=== PATIENT | male | born 1990 | race Caucasian/White ===

== ENCOUNTER 2017-03-23 11:50 | Emergency (ER) | payer OTHER ==
[~2017-03-23] VITALS: Ht 180.3 cm; Wt 108.0 kg
[~2017-03-23 11:50] MED LIST: ALPR0.5T2 PO; ARIP15TA1 PO; CITA40TA13 PO; DIL100L PO; KEN.1C TP; LORA10TA19 PO; PRAV40TA1 PO; TRAZ-286 PO
[2017-03-23 11:55] VITALS: BP 122/89
--- NOTE | 2017-03-23 13:04 | NUR ---
Patient ambulated to bed 07.
--- NOTE | 2017-03-23 13:11 | NUR ---
27/M c/o cough x4 days and a fever on and off the past few days. Afebrile at this time. Lungs clear bilaterally, chest rises and falls symmetrically. AOX4, clear speech. Pt has mild weakness to left side from previous strokes. Hx CVA, TIA, "heart problems" VSS at this time.
--- NOTE | 2017-03-23 13:25 | NUR ---
Patient being evaluated by Dr. Jang at bedside.
[2017-03-23 13:36] VITALS: BP 125/87
--- NOTE | 2017-03-23 13:36 | NUR ---
Patient discharged with v/s stable. Written and verbal after care instructions given and explained. Patient alert, oriented and verbalized understanding of instructions. Ambulatory with steady gait. All questions addressed prior to discharge. ID band removed. Patient advised to follow up with PMD. Rx of Motrin 800mg and Prednisone 20mg given. Patient educated on indication of medication including possible reaction and side effects. Opportunity to ask questions provided and answered.
== END 2017-03-23 13:36 | disposition home or self-care (01) ==
LOC: MED 11:50
DX: R05 Cough (principal); R50.9 Fever, unspecified; F17.200 Nicotine dependence, unspecified, uncomplicated
CPT/HCPCS: 71020; 99284

== ENCOUNTER 2017-04-04 09:21 | Emergency (ER) | payer OTHER ==
[~2017-04-04] VITALS: Ht 180.3 cm; Wt 108.9 kg
[2017-04-04 09:36] VITALS: BP 124/89
--- NOTE | 2017-04-04 09:43 | NUR ---
PATIENT PRESENTS TO ED WITH COUGH X2 WEEKS; WITH GREEN PHLEGM PRODUCTION HX SEIZURES, CVA X1, TIA X3, LOOP RECORDER-CARDIAC . DENIES N/V/D; SKIN IS PINK/WARM/DRY; AAOX4 WITH EVEN AND STEADY GAIT; LUNGS CLEAR BL; HR EVEN AND REGULAR; PT DENIES ANY FEVER, CP, SOB, OR COUGH AT THIS TIME; PATIENT STATES PAIN OF 0/10 AT THIS TIME; VSS; PATIENT POSITIONED FOR COMFORT; HOB ELEVATED; BEDRAILS UP X2; BED DOWN. ER MD MADE AWARE OF PT STATUS.
--- NOTE | 2017-04-04 10:02 | NUR ---
CALLED PHARMACY;NO D5 100 ML IN THE PYXIS;SPOKE TO YEIMY OF PHARMACY SAYS OKAY TO USE NS 100 ML.
[2017-04-04 10:19] VITALS: BP 137/87
--- NOTE | 2017-04-04 10:19 | NUR ---
Patient discharged with v/s stable. Written and verbal after care instructions given and explained. Patient alert, oriented and verbalized understanding of instructions. Ambulatory with steady gait. All questions addressed prior to discharge. ID band removed. Patient advised to follow up with PMD. Rx of PROMETHAZINE given. Patient educated on indication of medication including possible reaction and side effects. Opportunity to ask questions provided and answered.
== END 2017-04-04 10:19 | disposition home or self-care (01) ==
LOC: MED 09:21
DX: J02.8 Acute pharyngitis due to other specified organisms (principal); B96.89 Other specified bacterial agents as the cause of diseases classified elsewhere; Z79.899 Other long term (current) drug therapy; Z86.73 Personal history of transient ischemic attack (TIA), and cerebral infarction without residual deficits; Z88.0 Allergy status to penicillin
CPT/HCPCS: 99283

== ENCOUNTER 2018-02-02 12:37 | Emergency (ER) | payer OTHER ==
[~2018-02-02] VITALS: Ht 180.3 cm; Wt 108.9 kg
[~2018-02-02 12:37] MED LIST changes: -TRAZ-286 PO; +TRAZ-343 PO
[2018-02-02 12:50] VITALS: BP 137/92
--- NOTE | 2018-02-02 13:20 | NUR ---
PATIENT PRESENTS TO ED WITH C/O ABDOMINAL PAIN WITH N/V X2 TIMES TODAY . AAOX4 WITH EVEN AND STEADY GAIT; LUNGS CLEAR BL; HR EVEN AND REGULAR; PT DENIES ANY FEVER, CP, SOB, OR COUGH AT THIS TIME; PATIENT STATES PAIN OF 8/10 AT THIS TIME; VSS; PATIENT POSITIONED FOR COMFORT; HOB ELEVATED; BEDRAILS UP X2; BED DOWN. ER MD MADE AWARE OF PT STATUS.
--- NOTE | 2018-02-02 13:45 | NUR ---
Patient being evaluated by physician at bedside.
[2018-02-02] MEDS ORDERED: NACL 0.9% 1,000 ML IV ONE (13:46)
[2018-02-02] MEDS ORDERED: KETOROLAC 30 MG/ML VIAL IVP ONE (13:50)
[2018-02-02] MEDS ORDERED: ONDANSETRON 4 MG/2 ML VIAL IVP ONE (13:50)
[2018-02-02 14:10] LABS: BASOPHILS # (AUTO) 0.1 K/uL (0.00-0.22); BASOPHILS % (AUTO) 0.4 % (0.0-2.0); EOSINOPHILS % (AUTO) 0.3 % (0.0-4.0); HEMATOCRIT 46.4 % (36-52); HEMOGLOBIN 15.6 g/dL (12.0-18.0); LYMPHOCYTES # (AUTO) 2.7 K/uL (2.0-11.5); LYMPHOCYTES % (AUTO) 21.5 % (20.5-51.1); MEAN CORPUSCULAR HEMOGLOBIN 31 pg (27-31); MEAN CORPUSCULAR HGB CONC 34 g/dL (33-37); MEAN CORPUSCULAR VOLUME 92.1 fL (80-94); MONOCYTES % (AUTO) 8.1 % (1.7-9.3); NEUTROPHILS # (AUTO) 8.6 K/uL (1.8-7.7); NEUTROPHILS % (AUTO) 69.7 % (42.2-75.2); PLATELET COUNT (AUTO) 240 K/uL (140-450); RED BLOOD CELL COUNT(AUTO) 5.03 MIL/uL (4.20-6.10); WHITE BLOOD COUNT (AUTO) 12.4 K/uL (4.8-10.8)
[2018-02-02 14:30] LABS: CARBON DIOXIDE 29.6 mmol/L (21-32); CREATININE 1.2 mg/dL (0.7-1.3); POTASSIUM 3.6 mmol/L (3.5-5.1)
[2018-02-02 14:36] LABS: ALBUMIN 3.7 g/dL (3.4-5.0); TOTAL BILIRUBIN 0.2 mg/dL (0.0-1.0)
[2018-02-02 16:00] VITALS: BP 132/89
--- NOTE | 2018-02-02 16:00 | NUR ---
Patient discharged with v/s stable. Written and verbal after care instructions given and explained. Patient alert, oriented and verbalized understanding of instructions. Ambulatory with steady gait. All questions addressed prior to discharge. ID band removed. IV REMOVED. Patient advised to follow up with PMD. Rx of MOTRIN, SENOKOT given. Patient educated on indication of medication including possible reaction and side effects. Opportunity to ask questions provided and answered.
== END 2018-02-02 16:00 | disposition home or self-care (01) ==
LOC: MED 12:37
DX: R11.10 Vomiting, unspecified (principal); R10.13 Epigastric pain; I10 Essential (primary) hypertension; Z88.0 Allergy status to penicillin; Z79.899 Other long term (current) drug therapy; Z86.73 Personal history of transient ischemic attack (TIA), and cerebral infarction without residual deficits
CPT/HCPCS: 36415; 74176; 80053; 85025; 96361; 96374; 96375; 99285; J1885; J2405; J7030

== ENCOUNTER 2018-08-04 17:41 | Emergency (ER) | payer MEDICAID, OTHER ==
[~2018-08-04] VITALS: Ht 182.9 cm; Wt 108.5 kg
[2018-08-04 17:49] VITALS: BP 151/90
--- NOTE | 2018-08-04 17:49 | NUR ---
PT BIB SELF C/O ANXIETY X1 MONTH. PT REPORTS WORSENING PANIC ATTACKS X1 MONTH STATING SOB. PT RR TACHYPNEIC AT 24/MIN, SYMMETRICAL, NON-LABORED, BREATH SOUNDS CLEAR THROUGHTOUT. PT DENIES N/V/D, FEVER OR PAIN. PT REPORTS THAT HIS TOUNGUE IS TINGLING. SPEECH IS CLEAR, FACIAL SYMMETRY INTACT, GAIT IS STEADY, PERRLA, AAOX4, HAND THREAD INSPECTOR BL STRONG/EQUAL. VSS. ER MD TO SEE PT. MEDHX:ANXIETY, CVA RX:DENIES
[2018-08-04] MEDS ORDERED: LORazepam 2 MG/ML VIAL IM ONE (18:20)
[2018-08-04 19:05] VITALS: BP 132/74
== END 2018-08-04 19:05 | disposition home or self-care (01) ==
LOC: MED 17:41
DX: F41.9 Anxiety disorder, unspecified (principal); I10 Essential (primary) hypertension; F17.210 Nicotine dependence, cigarettes, uncomplicated; E07.9 Disorder of thyroid, unspecified; Z86.73 Personal history of transient ischemic attack (TIA), and cerebral infarction without residual deficits; Z88.0 Allergy status to penicillin; Z79.899 Other long term (current) drug therapy
CPT/HCPCS: 96372; 99283; J2060

== ENCOUNTER 2018-08-15 20:11 | Emergency (ER) | payer MEDICAID ==
[~2018-08-15] VITALS: Ht 182.9 cm; Wt 105.7 kg
[2018-08-15 20:24] VITALS: BP 141/86
--- NOTE | 2018-08-15 20:26 | NUR ---
TO LOBBY A/W BED, AMBULATORY
--- NOTE | 2018-08-15 20:34 | NUR ---
AMBULATED TO ER BED 2
--- NOTE | 2018-08-15 20:43 | NUR ---
BIB SELF WITH REPORTS OF WORSENING ANXIETY TODAY AFTER TAKEN NEWLY PRESCRIBED BUSPAR. STATES HE WAS SEEN HERE 2 WEEKS AGO AND AT [facility] ON SUNDAY FOR ANXIETY AND HAS BEEN TAKING 1 TAB OF ATIVAN DAILY. TODAY HE SAW HES PCP AND WAS GIVEN PRESCRIPTION OF BUSPAR AND INSTRUCTED TO STOP TAKING ATIVAN. AFTER HE TOOK THE NEW MEDICATION HE HAD A "PANIC ATTACK" STATES HIS ANXIETY IS LESSENED NOW AND IS NOT IN ANY DISTRESS. STATES HE HAS "PRESSURE" IN HIS HEAD 5/10 PAIN. NO OTHER SYMPTOMS REPORTED AT THIS TIME.
--- NOTE | 2018-08-15 22:10 | NUR ---
DR CUNNINGHAM AT BEDSIDE.
[2018-08-15 22:46] VITALS: BP 132/78
== END 2018-08-15 22:46 | disposition home or self-care (01) ==
LOC: MED 20:11
DX: F41.9 Anxiety disorder, unspecified (principal); Z86.73 Personal history of transient ischemic attack (TIA), and cerebral infarction without residual deficits; E07.9 Disorder of thyroid, unspecified; Z79.899 Other long term (current) drug therapy; Z88.0 Allergy status to penicillin
CPT/HCPCS: 99284

== ENCOUNTER 2018-08-27 07:44 | Emergency (ER) | payer MEDICAID ==
[~2018-08-27] VITALS: Ht 182.9 cm; Wt 108.9 kg
[2018-08-27 07:48] VITALS: BP 143/84
[2018-08-27] MEDS ORDERED: LORA-476 PO (07:52)
--- NOTE | 2018-08-27 07:55 | NUR ---
PATIENT AMBULATED TO BED 9 AT THIS TIME.
--- NOTE | 2018-08-27 07:56 | NUR ---
TO BED 9 WITH STEADY GAIT
--- NOTE | 2018-08-27 08:18 | NUR ---
admits take cbd oil along keanni dilantin to reduce his breakthrough seizure awoke this 5am with heart racing, took ativan 6am---flight of ideas, concerns of own health---- currently appears relaxed with hands folded over abdomen , speaking to me about how his anxiety feels.
--- NOTE | 2018-08-27 09:31 | NUR ---
Patient discharged with v/s stable. Written and verbal after care instructions given and explained. Patient alert, oriented and verbalized understanding of instructions. Ambulatory with steady gait. All questions addressed prior to discharge. ID band removed. Patient advised to follow up with PMD. Rx of prozac given. Patient educated on indication of medication including possible reaction and side effects. Opportunity to ask questions provided and answered. mental health sheet
[2018-08-27 09:32] VITALS: BP 128/74
== END 2018-08-27 09:31 | disposition home or self-care (01) ==
LOC: MED 07:44
DX: F41.9 Anxiety disorder, unspecified (principal); E07.9 Disorder of thyroid, unspecified; Z88.0 Allergy status to penicillin; Z79.899 Other long term (current) drug therapy; Z86.73 Personal history of transient ischemic attack (TIA), and cerebral infarction without residual deficits
CPT/HCPCS: 99284

== ENCOUNTER 2018-10-20 14:23 | Emergency (ER) | payer MEDICAID ==
[~2018-10-20] VITALS: Ht 182.9 cm; Wt 108.9 kg
[~2018-10-20 14:23] MED LIST changes: +LORA-476 PO
[2018-10-20 14:32] VITALS: BP 144/83
[2018-10-20] MEDS ORDERED: ACETAMINOPHEN EXTRA STRENGTH 500 MG TAB PO ONE (14:50)
--- NOTE | 2018-10-20 15:00 | NUR ---
C/O BILAT NECK PAIN 10/23 & SHARP SINCE YESTERDAY MORNING AFTER WAKING UP. PAIN RADIATES FROM NECK TO HEAD AND SHOULDER. PT DENIES INJURY, BUT STATES HE THINKS HE SLEPT WRONG. DENIES HEADACHE, BLURRY VISION, WEAKNESS. BED IN LOW POSITION, SIDE RAIL UP X1.
[2018-10-20 15:22] LABS: BASOPHILS # (AUTO) 0.1 K/uL (0.00-0.22); BASOPHILS % (AUTO) 0.7 % (0.0-2.0); EOSINOPHILS # (AUTO) 0.4 K/uL (0-0.4); EOSINOPHILS % (AUTO) 3.9 % (0.0-4.0); HEMATOCRIT 46.7 % (36-52); LYMPHOCYTES # (AUTO) 2.6 K/uL (2.0-11.5); MEAN CORPUSCULAR HEMOGLOBIN 31 pg (27-31); MEAN CORPUSCULAR HGB CONC 34 g/dL (33-37); MEAN CORPUSCULAR VOLUME 91.6 fL (80-94); MONOCYTES % (AUTO) 10.2 % (1.7-9.3); NEUTROPHILS % (AUTO) 59.2 % (42.2-75.2); PLATELET COUNT (AUTO) 208 K/uL (140-450); RED CELL DISTRIBUTION WIDTH 13.5 % (11.6-13.7); WHITE BLOOD COUNT (AUTO) 10.1 K/uL (4.8-10.8)
[2018-10-20 15:36] LABS: ANION GAP 10.9 (8-16); CARBON DIOXIDE 28.1 mmol/L (21-32); CREATININE 1.3 mg/dL (0.7-1.3)
[2018-10-20 15:40] LABS: PROTHROMBIN TIME 8.9 secs (10.8-13.4)
[2018-10-20 15:42] LABS: TOTAL BILIRUBIN 0.3 mg/dL (0.0-1.0)
--- NOTE | 2018-10-20 15:45 | NUR ---
PT REQUESTING TO SPEAK TO ERMD REGARDING THE TESTS BEING PERFORMED/ORDERED. DR. MONTIEL AWARE AND WILL SEE PT
--- NOTE | 2018-10-20 15:52 | NUR ---
WENT TO START IV ON PT FOR CT WITH CONTRAST, PT WANTS TO SPEAK WITH MD ABOUT WHY TESTS ARE BEING ORDERS , DR MONTIEL MADE AWARE, WILL GO SPEAK WITH PT.
--- NOTE | 2018-10-20 16:20 | NUR ---
DR MONTIEL SPOKE WITH PT, MADE AWARE PT WILL SIGNING OUT AMA AND GIVEN RX AND INSTRUCTIONS, PT SIGNED AMA FORM.
--- NOTE | 2018-10-20 16:25 | NUR ---
AFTER SPEAKING WITH DR. MONTIEL, PT DECLINES CT W/ CONTRAST. HE WISHES TO LEAVE AMA
[2018-10-20 16:32] VITALS: BP 144/83
--- NOTE | 2018-10-20 16:32 | NUR ---
Patient discharged with v/s stable. Written and verbal after care instructions given and explained. Patient alert, oriented and verbalized understanding of instructions. Ambulatory with steady gait. All questions addressed prior to discharge. ID band removed. Patient advised to follow up with PMD. Rx of IBUPROFEN, TYLENOL given. Patient educated on indication of medication including possible reaction and side effects. Opportunity to ask questions provided and answered.
== END 2018-10-20 16:32 | disposition home or self-care (01) ==
LOC: MED 14:23
DX: M54.2 Cervicalgia (principal); E07.9 Disorder of thyroid, unspecified; F41.9 Anxiety disorder, unspecified; Z86.73 Personal history of transient ischemic attack (TIA), and cerebral infarction without residual deficits; Z88.0 Allergy status to penicillin; Z79.899 Other long term (current) drug therapy
CPT/HCPCS: 36415; 71045; 80053; 83880; 84484; 85025; 85610; 85730; 93005; 99284; Q0092

== ENCOUNTER 2019-04-08 07:40 | Emergency (ER) | payer MEDICAID ==
[~2019-04-08] VITALS: Ht 182.9 cm; Wt 103.9 kg
--- NOTE | 2019-04-08 07:45 | NUR ---
pt taken to bed 11
[2019-04-08 07:50] VITALS: BP 135/95
[2019-04-08] MEDS ORDERED: MORPHINE SULFATE 2 MG/ML SYR IVP ONE (07:55)
[2019-04-08] MEDS ORDERED: ONDANSETRON 4 MG/2 ML VIAL IVP ONE (07:55)
[2019-04-08] MEDS ORDERED: KETOROLAC 30 MG/ML VIAL IVP ONE (07:55)
[2019-04-08] MEDS ORDERED: METOCLOPRAMIDE 10 MG/2 ML INJ VIAL IVP ONE (07:55)
[2019-04-08] MEDS ORDERED: cloNIDine 0.1 MG TAB PO ONE ×2 (08:05→15:30)
[2019-04-08] MEDS ORDERED: LORazepam 2 MG/ML VIAL IVP ONE (08:05)
--- NOTE | 2019-04-08 08:38 | NUR ---
PT AMBULATED TO BATHROOM, URINE WAS PROVIDED VIA PATIENT, SENT TO LAB
--- NOTE | 2019-04-08 08:39 | NUR ---
BLOOD JOSEPH AT BEDSIDE BY MALIHA AGUILAR, SENT TO LAB
--- NOTE | 2019-04-08 08:44 | NUR ---
PT TAKEN TO CT
[2019-04-08 08:49] LABS: APPEARANCE,URINE CLEAR (CLEAR); BILIRUBIN,URINE NEGATIVE (NEGATIVE); BLOOD, URINE NEGATIVE (NEGATIVE); COLOR,URINE YELLOW (YELLOW); LEUKOCYTE ESTERASE ,URINE NEGATIVE (NEGATIVE); NITRITE, URINE NEGATIVE (NEGATIVE); PH,URINE 8.5 (5.0-9.0); UGLUCOSE NEGATIVE (NEGATIVE)
[2019-04-08 08:49] LABS: PROTHROMBIN TIME 9.5 secs (10.8-13.4)
--- NOTE | 2019-04-08 08:49 | NUR ---
BIB SELF PATIENT WOKE UP YESTERDAY MORNING FEELING A PRESSURE IN THE BACK OF HEAD, 11/23. NO OTHER PAIN/SYMPTOMS REPORTED. 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
--- NOTE | 2019-04-08 08:51 | NUR ---
PT BACK FROM CT VIZ WHEELCHAIR, RESTING AT BEDSIDE Addendum: 04/08/19 at 0927 by SHANNAN Amendment undone in EDM - 04/08/19 at 0928 by SHANNAN PT BACK FROM CT VIA WHEELCHAIR, RESTING AT BEDSIDE
[2019-04-08 08:54] LABS: BARBITURATE, URINE NEG. ng/ml (NEG <=200); BENZODIAZEPINE, URINE POS. ng/mL (NEG <=200); CANNABINOID, URINE NEG. ng/mL (NEG <=50); COCAINE, URINE NEG. ng/mL (NEG <=300); OPIATE, URINE NEG. ng/mL (NEG <=2000); PHENCYCLIDINE SCREEN,URINE NEG. ng/mL (NEG <=25)
[2019-04-08 08:55] LABS: ALBUMIN 4.1 g/dL (3.4-5.0); ANION GAP 15.8 (8-16); CARBON DIOXIDE 23.8 mmol/L (21-32); POTASSIUM 3.6 mmol/L (3.5-5.1); TOTAL BILIRUBIN 0.7 mg/dL (0.0-1.0)
[2019-04-08 09:01] LABS: BASOPHILS % (AUTO) 0.7 % (0.0-2.0); EOSINOPHILS # (AUTO) 0.1 K/uL (0-0.4); HEMATOCRIT 48.8 % (36-52); HEMOGLOBIN 16.8 g/dL (12.0-18.0); LYMPHOCYTES # (AUTO) 1.7 K/uL (2.0-11.5); LYMPHOCYTES % (AUTO) 27.1 % (20.5-51.1); MEAN CORPUSCULAR HEMOGLOBIN 31 pg (27-31); MEAN CORPUSCULAR HGB CONC 35 g/dL (33-37); MEAN CORPUSCULAR VOLUME 90.8 fL (80-94); MONOCYTES # (AUTO) 0.7 K/uL (0.8-1.0); MONOCYTES % (AUTO) 10.9 % (1.7-9.3); NEUTROPHILS # (AUTO) 3.8 K/uL (1.8-7.7); NEUTROPHILS % (AUTO) 59.3 % (42.2-75.2); PLATELET COUNT (AUTO) 228 K/uL (140-450); RED BLOOD CELL COUNT(AUTO) 5.37 MIL/uL (4.20-6.10); RED CELL DISTRIBUTION WIDTH 13.3 % (11.6-13.7); WHITE BLOOD COUNT (AUTO) 6.4 K/uL (4.8-10.8)
[2019-04-08 10:10] VITALS: BP 135/75
--- NOTE | 2019-04-08 10:11 | NUR ---
Patient discharged with v/s stable. Written and verbal after care instructions given and explained. Patient alert, oriented and verbalized understanding of instructions. Ambulatory with steady gait. All questions addressed prior to discharge. ID band removed. Patient advised to follow up with PMD. Rx of PROMETHAZINE, PREDISONE, AZITHROMYCIN given. Patient educated on indication of medication including possible reaction and side effects. Opportunity to ask questions provided and answered.
== END 2019-04-08 10:11 | disposition home or self-care (01) ==
LOC: MED 07:40
DX: G44.209 Tension-type headache, unspecified, not intractable (principal); I10 Essential (primary) hypertension; J32.2 Chronic ethmoidal sinusitis; F32.9 Major depressive disorder, single episode, unspecified; E66.9 Obesity, unspecified; Z86.73 Personal history of transient ischemic attack (TIA), and cerebral infarction without residual deficits; Z86.69 Personal history of other diseases of the nervous system and sense organs; Z86.39 Personal history of other endocrine, nutritional and metabolic disease; Z79.899 Other long term (current) drug therapy; Z88.0 Allergy status to penicillin
CPT/HCPCS: 36415; 70450; 80053; 80305; 81003; 85025; 85610; 87804; 96374; 96375; 99284; J1885; J2405; J2765; J2060; J2270

== ENCOUNTER 2019-04-24 13:49 | Emergency (ER) | payer MEDICAID ==
[~2019-04-24] VITALS: Ht 182.9 cm; Wt 104.3 kg
[2019-04-24 14:05] VITALS: BP 143/80
--- NOTE | 2019-04-24 14:07 | NUR ---
Patient ambulated to chair C. RN evaluating patient.
--- NOTE | 2019-04-24 14:34 | NUR ---
29/M C/O NASAL CONGESTION, RHINORRHEA, PRODUCTIVE COUGH AND STOMACH PAIN WITH COUGHING X 2 DAYS. LUNGS CTAB. HX- CVA, SZ, HTN, ANXIETY
--- NOTE | 2019-04-24 14:42 | NUR ---
DR ELLSWORTH EVALUATING PT
== END 2019-04-24 15:00 | disposition home or self-care (01) ==
LOC: MED 13:49
DX: J20.9 Acute bronchitis, unspecified (principal); F41.9 Anxiety disorder, unspecified; I10 Essential (primary) hypertension; Z86.69 Personal history of other diseases of the nervous system and sense organs; Z86.73 Personal history of transient ischemic attack (TIA), and cerebral infarction without residual deficits; Z86.39 Personal history of other endocrine, nutritional and metabolic disease; Z79.899 Other long term (current) drug therapy; Z88.0 Allergy status to penicillin
CPT/HCPCS: 99283

== ENCOUNTER 2019-05-11 12:55 | Emergency (ER) | payer MEDICAID ==
[~2019-05-11] VITALS: Ht 182.9 cm; Wt 104.3 kg
[2019-05-11 13:20] VITALS: BP 147/79
--- NOTE | 2019-05-11 13:29 | NUR ---
PT BIB SELF C/O HERE FOR CAME MED REFILL : XANAX 0.5 MG PO DAILY.
--- NOTE | 2019-05-11 13:29 | NUR ---
PT BIB SELF C/O HERE FOR CAME MED REFILL : XANAX 0.5 MG PO DAILY. PT DENIES N/V/D; SKIN IS INTACT, PINK/WARM/DRY; AAOX4, PERRL, WITH EVEN AND STEADY GAIT; LUNGS CLEAR BL, BREATHING UNLABORED; HR EVEN AND REGULAR, BL PERIPHERAL PULSES PRESENT; BS ACTIVE X4, NO TENDERNESS TO PALPATION. PT DENIES ANY FEVER, CP, SOB, OR COUGH AT THIS TIME; PT STATES 0/10 PAIN AT THIS TIME; VSS; PATIENT POSITIONED FOR COMFORT; HOB ELEVATED; BEDRAILS UP X2; BED DOWN.
[2019-05-11 14:03] VITALS: BP 147/79
--- NOTE | 2019-05-11 14:04 | NUR ---
DCRXPatient discharged with v/s stable. Written and verbal after care instructions given and explained. Patient alert, oriented and verbalized understanding of instructions. Ambulatory with steady gait. All questions addressed prior to discharge. ID band removed. Patient advised to follow up with PMD. Rx of XANAX given. Patient educated on indication of medication including possible reaction and side effects. Opportunity to ask questions provided and answered.
== END 2019-05-11 14:04 | disposition home or self-care (01) ==
LOC: MED 12:55
DX: F41.9 Anxiety disorder, unspecified (principal); F32.9 Major depressive disorder, single episode, unspecified; Z76.0 Encounter for issue of repeat prescription; I10 Essential (primary) hypertension; Z86.73 Personal history of transient ischemic attack (TIA), and cerebral infarction without residual deficits; Z86.69 Personal history of other diseases of the nervous system and sense organs; Z86.39 Personal history of other endocrine, nutritional and metabolic disease; Z79.899 Other long term (current) drug therapy; Z88.0 Allergy status to penicillin
CPT/HCPCS: 99283

== ENCOUNTER 2019-05-26 17:30 | Emergency (ER) | payer MEDICAID ==
[~2019-05-26] VITALS: Ht 182.9 cm; Wt 103.4 kg
[2019-05-26 17:44] VITALS: BP 131/97
--- NOTE | 2019-05-26 17:51 | NUR ---
PT WHEELCHAIRED TO BED 3
--- NOTE | 2019-05-26 17:54 | NUR ---
29 YR OLD M C/O MULTIPLE WITNESSED SEIZURE ON WAY TO ER PMH- SEIZURE, STROKE 2014 L SIDED DEFICIT, PTSD, ANXIETY, HEART MURMUR, HTN
[2019-05-26 18:35] LABS: BASOPHILS # (AUTO) 0.1 K/uL (0.00-0.22); BASOPHILS % (AUTO) 0.9 % (0.0-2.0); EOSINOPHILS # (AUTO) 0.3 K/uL (0-0.4); EOSINOPHILS % (AUTO) 2.8 % (0.0-4.0); HEMATOCRIT 47.9 % (36-52); HEMOGLOBIN 16.2 g/dL (12.0-18.0); LYMPHOCYTES # (AUTO) 2.9 K/uL (2.0-11.5); LYMPHOCYTES % (AUTO) 32.2 % (20.5-51.1); MEAN CORPUSCULAR HEMOGLOBIN 31 pg (27-31); MEAN CORPUSCULAR HGB CONC 34 g/dL (33-37); MEAN CORPUSCULAR VOLUME 90.3 fL (80-94); MONOCYTES % (AUTO) 11.1 % (1.7-9.3); NEUTROPHILS # (AUTO) 4.8 K/uL (1.8-7.7); PLATELET COUNT (AUTO) 203 K/uL (140-450); RED CELL DISTRIBUTION WIDTH 13.4 % (11.6-13.7)
[2019-05-26 18:51] LABS: ANION GAP 14.3 (8-16); CARBON DIOXIDE 26.2 mmol/L (21-32); CREATININE 0.9 mg/dL (0.6-1.3); POTASSIUM 3.5 mmol/L (3.5-5.1)
--- NOTE | 2019-05-26 19:56 | NUR ---
PATIENT REFUESING TO PROVIDE URINE SAMPLE AT THIS TIME.
[2019-05-26 20:30] VITALS: BP 137/99
--- NOTE | 2019-05-26 20:30 | NUR ---
Patient discharged with v/s stable. Written and verbal after care instructions given and explained. Patient alert, oriented and verbalized understanding of instructions. Ambulatory with steady gait. All questions addressed prior to discharge. ID band removed. Patient advised to follow up with PMD. Rx of Melatonin given. Patient educated on indication of medication including possible reaction and side effects. Opportunity to ask questions provided and answered.
== END 2019-05-26 20:30 | disposition home or self-care (01) ==
LOC: MED 17:30
DX: R56.9 Unspecified convulsions (principal); R41.0 Disorientation, unspecified; I10 Essential (primary) hypertension; F41.9 Anxiety disorder, unspecified; E07.9 Disorder of thyroid, unspecified; F12.90 Cannabis use, unspecified, uncomplicated; Z86.73 Personal history of transient ischemic attack (TIA), and cerebral infarction without residual deficits; Z79.899 Other long term (current) drug therapy; Z88.0 Allergy status to penicillin
CPT/HCPCS: 80048; 85025; 99283

== ENCOUNTER 2019-06-10 13:31 | Emergency (ER) | payer MEDICAID ==
[~2019-06-10] VITALS: Ht 182.9 cm; Wt 99.8 kg
[2019-06-10 14:04] VITALS: BP 118/84
--- NOTE | 2019-06-10 14:20 | NUR ---
Pt triaged, Dr Suh made aware of pt status, pt to have CT head
--- NOTE | 2019-06-10 14:30 | NUR ---
PT TO ER BED 11 VIA W/C
--- NOTE | 2019-06-10 14:30 | NUR ---
CODE STROKE CALLED. ACCOMPANIED PT TO CT.
--- NOTE | 2019-06-10 14:31 | NUR ---
PT TO CT WITH RN RENNY
--- NOTE | 2019-06-10 14:35 | NUR ---
RECIEVED A 29/M FROM TRIAGE FOR L SIDED NUMBNESS/WEAKNESS. LAST KNOWN WELL 1000 THIS MORNING. NIH PERFORMED -- SCORE IS 4. NO FACIAL ASYMETRY NOTED. PT IS ENDORSES L SIDED WEAKNESS DUE TO PREVIOUS CVA. IN BED FOR MSE.
[2019-06-10] MEDS ORDERED: NACL 0.9% 1,000 ML IV ONE (15:10)
[2019-06-10 15:24] LABS: BASOPHILS # (AUTO) 0.1 K/uL (0.00-0.22); EOSINOPHILS # (AUTO) 0.4 K/uL (0-0.4); EOSINOPHILS % (AUTO) 5.2 % (0.0-4.0); HEMATOCRIT 50.6 % (36-52); HEMOGLOBIN 16.9 g/dL (12.0-18.0); LYMPHOCYTES # (AUTO) 2.5 K/uL (2.0-11.5); LYMPHOCYTES % (AUTO) 29.7 % (20.5-51.1); MEAN CORPUSCULAR HEMOGLOBIN 31 pg (27-31); MEAN CORPUSCULAR HGB CONC 33 g/dL (33-37); MONOCYTES # (AUTO) 0.7 K/uL (0.8-1.0); MONOCYTES % (AUTO) 7.8 % (1.7-9.3); NEUTROPHILS # (AUTO) 4.8 K/uL (1.8-7.7); NEUTROPHILS % (AUTO) 56.3 % (42.2-75.2); PLATELET COUNT (AUTO) 262 K/uL (140-450); RED BLOOD CELL COUNT(AUTO) 5.51 MIL/uL (4.20-6.10); RED CELL DISTRIBUTION WIDTH 13.1 % (11.6-13.7); WHITE BLOOD COUNT (AUTO) 8.5 K/uL (4.8-10.8)
[2019-06-10 15:47] LABS: ALBUMIN 4.4 g/dL (3.4-5.0); ANION GAP 13.5 (8-16); CARBON DIOXIDE 30.2 mmol/L (21-32); CREATININE 0.9 mg/dL (0.6-1.3); POTASSIUM 3.7 mmol/L (3.5-5.1); TOTAL BILIRUBIN 0.6 mg/dL (0.0-1.0)
[2019-06-10 15:57] LABS: PROTHROMBIN TIME 10.2 secs (10.8-13.4)
--- NOTE | 2019-06-10 16:18 | NUR ---
PATIENT TAKEN FOR CT SCAN VIA WHEELCHAIR.
--- NOTE | 2019-06-10 16:26 | NUR ---
PATIENT RETURNED FROM CT AT THIS TIME.
--- NOTE | 2019-06-10 17:50 | NUR ---
PT REMAINS IN BED; ON CONTINOUS CARDIAC MONITORING. UPDATED ON PLAN OF CARE.
[2019-06-10] MEDS ORDERED: levETIRAcetam 1,000 MG in NACL 0.9% 100 ML IV ONE (19:05)
--- NOTE | 2019-06-10 19:06 | NUR ---
Patient to be transferred to [facility]. Is being transferred due to HIGHER LEVEL OF CARE. Receiving facility has accepting physician and available space. ER physician has signed transfer form. Patient or responsible green party has agreed to transfer and signed form. Patient belongings inventoried and will be sent with patient. Copy of nursing notes, lab reports, EKG, Physicians Orders and X-rays to be sent with patient. Report called to MALIHA GREEN at receiving facility. [facility] ambulance service has been called for transfer. ETA is 30MINS.
[2019-06-10] MEDS ORDERED: levETIRAcetam 100 MG/ML VIAL IV ONE (19:12)
--- NOTE | 2019-06-10 19:21 | NUR ---
REPORT TO MALIHA GAN. ALL CARE TRANSFERRED.
--- NOTE | 2019-06-10 19:30 | NUR ---
RECEIVED REPORT FROM DAY SHIFT RN. PT AAOX4. L SIDED WEAKNESS NOTED. PT HAS HX OF CVA WITH L SIDED DEFICITSAND SZRS. PT TO BE TRANSFERRED TO [facility] FOR HIGHER LEVEL OF CARE. VSS. WILL CONTINUE TO OBSERVE.
[2019-06-10 19:57] VITALS: BP 137/82
--- NOTE | 2019-06-10 20:00 | NUR ---
[facility] TRANSPORT @ BEDSIDE. VSS @ THIS TIME. IV TO R FA KEPT IN PLACE. NO ACUTE DISTRESS NOTED @ THIS TIME
--- NOTE | 2019-06-12 06:27 | NUR ---
Late entry. Confirmed with RN that 0.9 NS IV was completed at 1620
== END 2019-06-10 19:58 | disposition short-term general hospital (02) ==
LOC: MED 13:31
DX: I63.9 Cerebral infarction, unspecified (principal); R56.9 Unspecified convulsions; I10 Essential (primary) hypertension; F17.210 Nicotine dependence, cigarettes, uncomplicated; Z86.73 Personal history of transient ischemic attack (TIA), and cerebral infarction without residual deficits; Z79.899 Other long term (current) drug therapy; Z88.0 Allergy status to penicillin
CPT/HCPCS: 36415; 70450; 70496; 70498; 71045; 80053; 85025; 85610; 85730; 93005; 96365; 99291; J1953; J7030; Q0092; Q9967

== ENCOUNTER 2020-03-28 08:03 | Emergency (ER) | payer MEDICAID ==
[~2020-03-28] VITALS: Ht 182.9 cm; Wt 100.7 kg
[2020-03-28 08:29] VITALS: BP 121/77
--- NOTE | 2020-03-28 08:30 | NUR ---
C/O BILAT EAR PAIN, WORSE ON R THAN LEFT X2 DAYS. DENIES FEVER
--- NOTE | 2020-03-28 08:43 | NUR ---
Dr Armstrong at bedside examining patient
--- NOTE | 2020-03-28 09:30 | NUR ---
Josué carranza in EDM - 03/28/20 at 1031 by [email or web address] C/O BILAT EAR PAIN, WORSE ON R THAN LEFT X2 DAYS. DENIES FEVER
[2020-03-28 10:32] VITALS: BP 121/77
== END 2020-03-28 09:15 | disposition home or self-care (01) ==
LOC: MED 08:03
DX: H92.01 Otalgia, right ear (principal); I10 Essential (primary) hypertension; Z79.899 Other long term (current) drug therapy; Z88.0 Allergy status to penicillin; Z86.73 Personal history of transient ischemic attack (TIA), and cerebral infarction without residual deficits
CPT/HCPCS: 99283

== ENCOUNTER 2020-05-05 07:14 | Emergency (ER) | payer MEDICAID ==
[~2020-05-05] VITALS: Ht 182.9 cm; Wt 100.2 kg
[2020-05-05 07:19] VITALS: BP 129/81
[2020-05-05 07:37] VITALS: BP 127/80
--- NOTE | 2020-05-05 07:38 | NUR ---
cleared for d/c by Dr Moreno; d/c with prescription & instructions on GERD, Diarrhea. Pt fully understands all materials given re c/c; has no further questions; aox4; VSS; ambulatory with steady gait; no signs of acute distress.
== END 2020-05-05 07:38 | disposition home or self-care (01) ==
LOC: MED 07:14
DX: K21.9 Gastro-esophageal reflux disease without esophagitis (principal); R19.7 Diarrhea, unspecified; I10 Essential (primary) hypertension; Z86.73 Personal history of transient ischemic attack (TIA), and cerebral infarction without residual deficits; Z88.0 Allergy status to penicillin; Z79.899 Other long term (current) drug therapy
CPT/HCPCS: 99283

== ENCOUNTER 2020-05-06 07:22 | Emergency (ER) | payer MEDICAID ==
[~2020-05-06] VITALS: Ht 182.9 cm; Wt 100.2 kg
[2020-05-06 07:30] VITALS: BP 115/75
--- NOTE | 2020-05-06 07:49 | NUR ---
30 Y/O M BIB SELF FROM HOME WITH C/C DIARRHEA X 3 DAYS. PT STATES SYMPTOMS BEGAN ON 05/03 AND STATES HE WAS SEEN YESTERDAY AT [facility] FOR N/V/D. PT STATES HE WOKE UP TODAY FEELING GENERALIZED WEAKNESS. PT STATES NO BLOOD OR FOUL SMELL WITH DIARRHEA. PT DENIES DIZZINESS, HEADACHE, BLURRY VISION, PAIN, SOB, CP, N/V. BOWEL SOUNDS PRESENT AND ACTIVE. LUNG SOUNDS CLEAR BILATERALLY. HX: SEIZURES, CVA (2019), HTN, HYPERLIPIDEMIA, ANXIETY/PTSD, HEART DISEASE ALLERGIES: PENICILLINS MEDS: ASA, ENALAPRIL, ATORVASTATIN
--- NOTE | 2020-05-06 07:50 | NUR ---
PT SITTING IN SEMI-FOWLERS POSITION. RESOURCE ANALYST IN PLACE. ALL PT NEEDS MET AT THIS TIME. BED LOCKED IN LOWEST POSITION, SIDE RAILS X 1, CALL LIGHT IN REACH
--- NOTE | 2020-05-06 07:53 | NUR ---
ERMD AT BEDSIDE
[2020-05-06 08:12] VITALS: BP 118/74
--- NOTE | 2020-05-06 08:12 | NUR ---
Patient discharged with v/s stable. Written and verbal after care instructions given and explained. Patient alert, oriented and verbalized understanding of instructions. Ambulatory with steady gait. All questions addressed prior to discharge. ID band removed. Patient advised to follow up with PMD. Rx of Azithromycin given. Patient educated on indication of medication including possible reaction and side effects. Opportunity to ask questions provided and answered.
== END 2020-05-06 08:12 | disposition home or self-care (01) ==
LOC: MED 07:27
DX: R19.7 Diarrhea, unspecified (principal); R10.13 Epigastric pain; I10 Essential (primary) hypertension; Z86.73 Personal history of transient ischemic attack (TIA), and cerebral infarction without residual deficits; Z88.0 Allergy status to penicillin; Z79.899 Other long term (current) drug therapy
CPT/HCPCS: 99283

== ENCOUNTER 2021-06-19 15:02 | Inpatient (IN) | payer MEDICAID, SELFPAY ==
[~2021-06-19] VITALS: Ht 182.9 cm; Wt 112.9 kg
[~2021-06-19 15:02] MED LIST changes: -ALPR0.5T2 PO; -ARIP15TA1 PO; +ATOR40TA PO; -CITA40TA13 PO; -DIL100L PO; +DIVA250T PO; +DOCU-299 PO; -KEN.1C TP; -LORA-476 PO; -LORA10TA19 PO; +PANT40EC56 PO; -PRAV40TA1 PO; -TRAZ-343 PO; +[UNRECOGNIZED DRUG - CODE] PO
--- NOTE | 2021-06-19 15:03 | NUR ---
BIB WHEELCHAIR TO ER BED 7
[2021-06-19 15:06] VITALS: BP 137/99
--- NOTE | 2021-06-19 15:06 | NUR ---
DR. CASTRO BEDSIDE EVALUATING PT
[2021-06-19] MEDS ORDERED: NACL 0.9% 1,000 ML IV ONE (15:10)
[2021-06-19] MEDS ORDERED: levETIRAcetam 1,000 MG in NACL 0.9% 100 ML IV ONE (15:10)
--- NOTE | 2021-06-19 15:16 | NUR ---
DR. CASTRO CALLED CODE BRAIN AT THIS TIME.
[2021-06-19] MEDS ORDERED: levETIRAcetam 100 MG/ML VIAL IV ONE (15:17)
--- NOTE | 2021-06-19 15:17 | NUR ---
PT TAKEN TO CT VIA JOHN
[2021-06-19 15:22] LABS: BASOPHILS # (AUTO) 0.1 K/uL (0.00-0.22); BASOPHILS % (AUTO) 0.5 % (0.0-2.0); EOSINOPHILS # (AUTO) 0.1 K/uL (0-0.4); EOSINOPHILS % (AUTO) 0.8 % (0.0-4.0); HEMOGLOBIN 17.6 g/dL (12.0-18.0); LYMPHOCYTES # (AUTO) 2.2 K/uL (2.0-11.5); LYMPHOCYTES % (AUTO) 22.1 % (20.5-51.1); MEAN CORPUSCULAR HEMOGLOBIN 31 pg (27-31); MEAN CORPUSCULAR HGB CONC 35 g/dL (33-37); MEAN CORPUSCULAR VOLUME 89.1 fL (80-94); MONOCYTES # (AUTO) 0.6 K/uL (0.8-1.0); MONOCYTES % (AUTO) 6.1 % (1.7-9.3); NEUTROPHILS # (AUTO) 7.1 K/uL (1.8-7.7); NEUTROPHILS % (AUTO) 70.5 % (42.2-75.2); PLATELET COUNT (AUTO) 234 K/uL (140-450); RED BLOOD CELL COUNT(AUTO) 5.61 MIL/uL (4.20-6.10); RED CELL DISTRIBUTION WIDTH 13.4 % (11.6-13.7); WHITE BLOOD COUNT (AUTO) 10.1 K/uL (4.8-10.8)
--- NOTE | 2021-06-19 15:27 | NUR ---
pt returned from ct
--- NOTE | 2021-06-19 15:36 | NUR ---
PT REFUSED CT ANGIO OF HEAD AND NECK. PT AWARE OF RISKS OF REFUSAL. ER MD CASTRO MADE AWARE.
--- NOTE | 2021-06-19 15:40 | NUR ---
TELENEURO CONSULT INITIATED;[facility] ID [id number]
--- NOTE | 2021-06-19 15:51 | NUR ---
31 Y/O M BIB MOTHER/FAMILY DUE TO MULTIPLE SEZURES TODAY. PT HAD TOTAL OF 3 SEZURES TODAY, WITH THE LAST ONE ON HIS WAY TO THE HOSPITAL THAT LASTED ABOUT 30 SECONDS. PT CURRENTLY EXPERIANCING L SIDED PARALYSIS AT THIS TIME. ALLERGIES: PENICILLIN PMH: CVA, SEIZURE
[2021-06-19 15:59] LABS: ALBUMIN 4.3 g/dL (3.4-5.0); ANION GAP 16.3 (8-16); CREATININE 0.9 mg/dL (0.6-1.3)
[2021-06-19 16:02] LABS: POTASSIUM 4.3 mmol/L (3.5-5.1)
--- NOTE | 2021-06-19 16:05 | NUR ---
PT CURRENTLY ON TELE NEURO CONSULATION SPEAKING WITH
--- NOTE | 2021-06-19 16:46 | NUR ---
X-RAY AT BEDSIDE.
[2021-06-19 16:51] LABS: BILIRUBIN,URINE NEGATIVE (NEGATIVE); BLOOD, URINE NEGATIVE (NEGATIVE); LEUKOCYTE ESTERASE ,URINE NEGATIVE (NEGATIVE); NITRITE, URINE NEGATIVE (NEGATIVE); PH,URINE 5.5 (5.0-9.0); UGLUCOSE NEGATIVE (NEGATIVE)
[2021-06-19 17:13] LABS: APPEARANCE,URINE CLEAR (CLEAR); COLOR,URINE YELLOW (YELLOW)
[2021-06-19 17:14] LABS: BARBITURATE, URINE NEGATIVE ng/ml (NEG <=200); BENZODIAZEPINE, URINE NEGATIVE ng/mL (NEG <=200); CANNABINOID, URINE NEGATIVE ng/mL (NEG <=50); COCAINE, URINE NEGATIVE ng/mL (NEG <=300); OPIATE, URINE NEGATIVE ng/mL (NEG <=2000); PHENCYCLIDINE SCREEN,URINE NEGATIVE ng/mL (NEG <=25)
--- NOTE | 2021-06-19 18:32 | NUR ---
Patient will be admitted to care of DR MEJIA. Admited TO TELE FLOOR. Will go to room 123B. Belongings list completed. Report to NEREYDA JETT.
--- NOTE | 2021-06-19 18:37 | NUR ---
Chart checked and completed. The patient's care was reviewed and supervised by Tina Grady, RN, RN.
[2021-06-19 20:00] VITALS: BP 108/71
--- NOTE | 2021-06-19 20:00 | NUR ---
PATIENT IS A NEW ADMIT D/T SEIZURE, HAS LEFT SIDED WEAKNESS. AOX4,STABLE , ON ROOM AIR, NO DISTRESS NOTED
[2021-06-19] MEDS ORDERED: LORazepam 2 MG/ML VIAL IVP PRN ×3 (21:20→21:40)
[2021-06-19] MEDS ORDERED: ACETAMINOPHEN 325 MG TAB PO PRN (21:20)
[2021-06-19] MEDS ORDERED: MORPHINE SULFATE 2 MG/ML SYR IVP PRN (21:20)
[2021-06-19] MEDS ORDERED: POTASSIUM CHLORIDE 10 MEQ TABER PO PRN (21:20)
[2021-06-19] MEDS ORDERED: MAG SULF 2000 MG/WATER PREMIX 50 ML IV PRN (21:20)
[2021-06-19] MEDS ORDERED: ONDANSETRON 4 MG/2 ML VIAL IVP PRN (21:20)
[2021-06-19] MEDS ORDERED: ZOLPIDEM 10 MG TAB PO PRN (21:20)
[2021-06-19] MEDS ORDERED: DOCUSATE SODIUM 100 MG GELCAP PO PRN (21:20)
--- NOTE | 2021-06-19 22:00 | NUR ---
PATIENT IN BED ,NO COMP;AIN OF PAIN, NO EPISODE OF SEIZURE ACTIVITY,ALL SAFETY MEASURES IN PLACE
[2021-06-19] MEDS: NACL 0.9% 1,000 ML IV SCH (23:56)
[2021-06-20] VITALS: BP 116/69
--- NOTE | 2021-06-20 01:00 | NUR ---
PATIENT SLEEPING, ALL SAFETY MEASURES IN PLACE,NO DISTRESS NOTED
[2021-06-20 04:00] VITALS: BP 108/75
--- NOTE | 2021-06-20 04:00 | NUR ---
PT SLEEPING,BREATHING EVEN AND UNLABORED,NO DISTRESS NOTED,ALL SAFETY MEASURES IN PLACE,NO SEIZURE NOTED
[2021-06-20 05:24] LABS: BASOPHILS % (AUTO) 0.6 % (0.0-2.0); EOSINOPHILS # (AUTO) 0.4 K/uL (0-0.4); EOSINOPHILS % (AUTO) 4.1 % (0.0-4.0); HEMATOCRIT 44.1 % (36-52); HEMOGLOBIN 15.1 g/dL (12.0-18.0); LYMPHOCYTES # (AUTO) 3.5 K/uL (2.0-11.5); LYMPHOCYTES % (AUTO) 39.8 % (20.5-51.1); MEAN CORPUSCULAR HEMOGLOBIN 31 pg (27-31); MEAN CORPUSCULAR HGB CONC 34 g/dL (33-37); MEAN CORPUSCULAR VOLUME 90.5 fL (80-94); MONOCYTES # (AUTO) 0.8 K/uL (0.8-1.0); MONOCYTES % (AUTO) 8.5 % (1.7-9.3); NEUTROPHILS # (AUTO) 4.2 K/uL (1.8-7.7); PLATELET COUNT (AUTO) 208 K/uL (140-450); RED BLOOD CELL COUNT(AUTO) 4.87 MIL/uL (4.20-6.10); RED CELL DISTRIBUTION WIDTH 13.3 % (11.6-13.7); WHITE BLOOD COUNT (AUTO) 8.9 K/uL (4.8-10.8)
[2021-06-20 05:45] LABS: ANION GAP 9.3 (8-16); CARBON DIOXIDE 29.2 mmol/L (21-32); CREATININE 1.1 mg/dL (0.6-1.3); POTASSIUM 4.5 mmol/L (3.5-5.1)
--- NOTE | 2021-06-20 06:00 | NUR ---
PATIENT SLEEPING NO DISTRES NOTED,NO SEIZURES THROUGHOUT THE NIGHT
[2021-06-20] MEDS: NACL 0.9% 1,000 ML IV SCH ×2 (06:39→17:22)
--- NOTE | 2021-06-20 07:30 | NUR ---
RECEIVED REPORT FROM PM RN FOR CONTINUITY OF CARE, PT AOX4, VSS, APPEARS ASLEEP, SAFETY MEASURES MAINTAINED, WILL CONTINUE TO MONITOR
[2021-06-20 08:00] VITALS: BP 127/84
[2021-06-20] MEDS: DIVALPROEX 250 MG TABEC PO SCH ×2 (08:51→21:00)
[2021-06-20] MEDS ORDERED: levETIRAcetam 1,000 MG in NACL 0.9% 100 ML IV SCH (09:00)
--- NOTE | 2021-06-20 10:39 | NUR ---
PATIENT HAS BEEN SCREENED AND CATEGORIZED LOW NUTRITION RISK. PATIENT WILL BE SEEN WITHIN 7 DAYS OF ADMISSION. 06/26/[address]
[2021-06-20] MEDS ORDERED: ZOLPIDEM 5 MG TAB PO PRN (10:45)
[2021-06-20] MEDS ORDERED: POTASSIUM CHLORIDE 10 MEQ TABER PO PRN (10:45)
[2021-06-20] MEDS ORDERED: MAG SULF 2000 MG/WATER PREMIX 50 ML IV PRN (10:45)
[2021-06-20] MEDS ORDERED: LORazepam 2 MG/ML VIAL IM/IVP PRN (10:45)
[2021-06-20] MEDS ORDERED: ACETAMINOPHEN 325 MG TAB PO PRN (10:45)
[2021-06-20] MEDS ORDERED: ONDANSETRON 4 MG/2 ML VIAL IM/IVP PRN (10:45)
[2021-06-20] MEDS ORDERED: DOCUSATE SODIUM 100 MG GELCAP PO PRN (10:45)
[2021-06-20] MEDS ORDERED: HYDROcodone/APAP 5/325 MG 1 TAB TAB PO PRN (10:45)
[2021-06-20 12:00] VITALS: BP 117/77
[2021-06-20 13:39] LABS: FREE T4 (FREE THYROXINE) 1.35 ng/dL (0.76-1.46); THYROID STIMULATING HORMONE 0.57 uIU/mL (0.34-3.74)
[2021-06-20 13:42] LABS: PROTHROMBIN TIME 9.9 secs (10.8-13.4)
--- NOTE | 2021-06-20 15:50 | NUR ---
DC PLANNING: THE PATIENT PRESENTED FROM HOME WITH C/O SEIZURES X 3 AND TODDS PARALYSIS. PATIENT HAD A LAPSE IN MEDICATIONS BECAUSE HE HASN'T BEEN ABLE TO SEE A NEUROLOGIST CONTRACTED WITH [facility]. THE PATIENT WAS GIVEN KEPPRA AND IS NOW TAKING DEPAKOTE IV. KIM SPOKE WITH THE PATIENT AT BEDSIDE AND CONFIRMED HIS ADDRESS, HIS CELL PHONE IS [phone]. HE IS NORMALLY ACTIVE AND INDEPENDENT WITH ALL ACTIVITIES BUT STATES THAT HIS LEFT SIDED PARALYSIS POST SEIZURE IS USUALLY SLOW TO RESOLVE AND THAT HE USES A CANE OR FWW TO AMBULATE. HAD HOME HEALTH WITH STEPHAN ON HIS LAST ADMISSION/DISCHARGE. HE LIVES IN A TWO STORY HOUSE WITH HIS PARENTS AND IS NEWLY EMPLOYED WITH [employer]. STATES THAT HE GO[facility] TO [facility] AND NEEDS A STOCK DRIER TENDER WHO WILL REMOVE A LOOP RECORDED PLACED FIVE YEARS AGO. ALSO STATES HE HAS A NEUROLOGY APPOINTMENT IN JULY. KIM SPOKE WITH ROMAIN AT [facility] WHO STATES THAT THE PATIENT IS APPROVED FOR A CARDIOLOGY CONSULT WITH JINA MOTT ([phone]) AND CONFIRMED THAT HE IS APPROVED TO SEE A NEUROLOGIST IN [facility]. KIM WILL GIVE THE PATIENT HIS CARDIOLOGY CONSULT INFORMATION AND WILL ORDER HOME HEALTH IF NEEDED. KIM WILL FOLLOW. Addendum: 06/20/21 at 1603 by Roma Moran CM Amended: Links added.
[2021-06-20 16:00] VITALS: BP 129/87
--- NOTE | 2021-06-20 19:35 | NUR ---
RECEIVED PT FROM AM SHIFT NURSE FOR CONTINUITY OF CARE. PT ALERT AND ORIENTED. ON ROOM AIR. IV ON L AC G18 RUNNING NS AT 100. PT AFEBRILE, REPORTS WEAKNESS ON LEFT SIDE SINCE ADMIT. NO OTHER COMPLAINS AT THIS TIME. NO S/SX OF DISTRESS NOTED. ALL PRECAUTIONS IN PLACE . CALL LIGHT WITHIN REACH. WILL CONTINUE TO MONITOR.
[2021-06-20 20:00] VITALS: BP 119/75
--- NOTE | 2021-06-20 21:30 | NUR ---
SCHEDULED HEPARIN GIVEN. PT TOLERATED WELL. DEPAKOTE 750MG PO NOT GIVEN DUE TO OMNICELL NOT WORKING, REPORTED ISSUE TO FIELD HOCKEY COACH BUT STILL CAN'T GET THE MEDICATION FROM [employer]MN[facility]. WILL ENDORSE TO AM SHIFT NURSE.
[2021-06-21] VITALS: BP 122/79
--- NOTE | 2021-06-21 | NUR ---
PT ASLEEP IN BED. BREATHING EQUAL AND UNLABORED. PT NO S/SX OF DISTRESS. WILL CONTINUE TO MONITOR.
[2021-06-21 04:00] VITALS: BP 98/55
[2021-06-21] MEDS: NACL 0.9% 1,000 ML IV SCH ×3 (04:55→23:20)
[2021-06-21 05:27] LABS: BASOPHILS % (AUTO) 0.6 % (0.0-2.0); EOSINOPHILS # (AUTO) 0.3 K/uL (0-0.4); EOSINOPHILS % (AUTO) 3.7 % (0.0-4.0); HEMATOCRIT 42.6 % (36-52); HEMOGLOBIN 14.6 g/dL (12.0-18.0); LYMPHOCYTES # (AUTO) 3.3 K/uL (2.0-11.5); LYMPHOCYTES % (AUTO) 38.4 % (20.5-51.1); MEAN CORPUSCULAR HEMOGLOBIN 31 pg (27-31); MEAN CORPUSCULAR HGB CONC 34 g/dL (33-37); MONOCYTES # (AUTO) 0.7 K/uL (0.8-1.0); MONOCYTES % (AUTO) 7.7 % (1.7-9.3); NEUTROPHILS # (AUTO) 4.2 K/uL (1.8-7.7); NEUTROPHILS % (AUTO) 49.6 % (42.2-75.2); PLATELET COUNT (AUTO) 202 K/uL (140-450); RED BLOOD CELL COUNT(AUTO) 4.73 MIL/uL (4.20-6.10); RED CELL DISTRIBUTION WIDTH 13.2 % (11.6-13.7); WHITE BLOOD COUNT (AUTO) 8.5 K/uL (4.8-10.8)
[2021-06-21 05:41] LABS: CARBON DIOXIDE 25.1 mmol/L (21-32); CREATININE 0.9 mg/dL (0.6-1.3); POTASSIUM 4.1 mmol/L (3.5-5.1)
[2021-06-21 05:51] LABS: PHOSPHORUS 3.5 mg/dL (2.5-4.9)
--- NOTE | 2021-06-21 06:40 | NUR ---
PT IS STABLE. NO ACUTE EVENTS THROUGHOUT THE NIGHT. NO S/SX OF DISTRESS NOTED. ALL NEEDS ATTENDED.ALL PRECAUTIONS IN PLACE. WILL ENDORSE TO AM SHIFT NURSE.
--- NOTE | 2021-06-21 08:00 | NUR ---
RECEIVED REPORT FROM IT SOLUTIONS ARCHITECT RN. AAOx4, VSS, NAD NOTED. NO C/O PAIN. WILL CONTINUE TO MONITOR.
[2021-06-21 08:05] VITALS: BP 119/75
[2021-06-21 08:08] LABS: T4 (THYROXINE) 9.3 ug/dL (4.5-12.0)
[2021-06-21] MEDS: DIVALPROEX 250 MG TABEC PO SCH ×2 (08:51→20:48)
[2021-06-21 12:00] VITALS: BP 104/70
[2021-06-21 16:00] VITALS: BP 120/76
--- NOTE | 2021-06-21 19:02 | NUR ---
WILL ENDORSE CARE TO NIGHTSHIFT RN.
--- NOTE | 2021-06-21 19:05 | NUR ---
RECEIVED PT FROM AM SHIFT NURSE FOR CONTINUITY OF CARE. PT ALERT AND ORIENTED. ON ROOM AIR. IV ON L AC G18 RUNNING NS AT 100. PT AFEBRILE. NO OTHER COMPLAINS AT THIS TIME. NO S/SX OF DISTRESS NOTED. ALL PRECAUTIONS IN PLACE . CALL LIGHT WITHIN REACH. WILL CONTINUE TO MONITOR.
[2021-06-21 20:00] VITALS: BP 116/71
--- NOTE | 2021-06-21 21:00 | NUR ---
SCHEDULED MEDICATIONS GIVEN. PT TOLERATED WELL.WILL CONTINUE TO MONITOR.
--- NOTE | 2021-06-21 23:30 | NUR ---
IV ON LEFT AC G 18 INFILTRATED. STARTED NEW IV ON LEFT HAND G22.
[2021-06-22] VITALS: BP 114/74
--- NOTE | 2021-06-22 01:59 | NUR ---
PT ASLEEP IN BED. BREATHING EQUAL AND UNLABORED. PT NO S/SX OF DISTRESS. WILL CONTINUE TO MONITOR.
[2021-06-22 04:00] VITALS: BP 118/76
[2021-06-22 05:41] LABS: PHOSPHORUS 3.7 mg/dL (2.5-4.9)
--- NOTE | 2021-06-22 06:28 | NUR ---
PT IS STABLE. NO ACUTE EVENTS THROUGHOUT THE NIGHT. NO S/SX OF DISTRESS NOTED. ALL NEEDS ATTENDED.ALL PRECAUTIONS IN PLACE. WILL ENDORSE TO AM SHIFT NURSE.
--- NOTE | 2021-06-22 07:35 | NUR ---
ENDORSED TO AM SHIFT NURSE FOR CONTINUITY OF CARE. PT IS STABLE.
--- NOTE | 2021-06-22 07:39 | NUR ---
PHYSICAL THERAPY CO-SIGN The Physical Therapy Progress Notes documented by [facility] have been reviewed. Reviewed/Co-Signed by: Patricia Ovalle Documentation Done by: BETTY MANUEL PTA Addendum: 06/22/21 at 0739 by Patricia Ovalle PT Amended: Links added.
[2021-06-22 08:09] VITALS: BP 122/73
[2021-06-22] MEDS: NACL 0.9% 1,000 ML IV SCH (08:30)
[2021-06-22] MEDS: DIVALPROEX 250 MG TABEC PO SCH (08:30)
[2021-06-22 09:21] LABS: BASOPHILS # (AUTO) 0.1 K/uL (0.00-0.22); BASOPHILS % (AUTO) 0.7 % (0.0-2.0); EOSINOPHILS # (AUTO) 0.3 K/uL (0-0.4); EOSINOPHILS % (AUTO) 4.3 % (0.0-4.0); HEMATOCRIT 42.8 % (36-52); HEMOGLOBIN 14.3 g/dL (12.0-18.0); LYMPHOCYTES # (AUTO) 3.6 K/uL (2.0-11.5); LYMPHOCYTES % (AUTO) 46.2 % (20.5-51.1); MEAN CORPUSCULAR HEMOGLOBIN 31 pg (27-31); MEAN CORPUSCULAR HGB CONC 34 g/dL (33-37); MEAN CORPUSCULAR VOLUME 91.4 fL (80-94); MONOCYTES # (AUTO) 0.5 K/uL (0.8-1.0); MONOCYTES % (AUTO) 6.8 % (1.7-9.3); NEUTROPHILS # (AUTO) 3.3 K/uL (1.8-7.7); PLATELET COUNT (AUTO) 195 K/uL (140-450); RED BLOOD CELL COUNT(AUTO) 4.68 MIL/uL (4.20-6.10); RED CELL DISTRIBUTION WIDTH 13.2 % (11.6-13.7); WHITE BLOOD COUNT (AUTO) 7.8 K/uL (4.8-10.8)
--- NOTE | 2021-06-22 09:29 | NUR ---
PT IS AOx4, VSS, NAD NOTED. PT ABLE TO TOLERATE AM MEDICATIONS. WILL CONTINUE TO MONITOR.
[2021-06-22 12:00] VITALS: BP 126/78
[2021-06-22] MEDS ORDERED: DIVA250E1 PO (15:45)
[2021-06-22 15:52] VITALS: BP 124/76
[2021-06-22 16:00] VITALS: BP 127/82
--- NOTE | 2021-06-22 17:32 | NUR ---
PT IS AOX4, VSS NAD NOTED. PT DENIES PAIN. PT UNDERSTANDING OF DISCHARGE MEDICATIONS/PLAN. QUESTIONS/CONCERNS ANSWERED AND SAFETY MEASURES IN PLACE.
== END 2021-06-22 18:15 | disposition home or self-care (01) | DRG 53 ==
LOC: MED 15:02 → MTU 18:05
PROVIDERS: ADMIT General Practice; ATTEND General Practice
DX: G40.909 Epilepsy, unspecified, not intractable, without status epilepticus (principal); G83.84 Todd's paralysis (postepileptic); E66.9 Obesity, unspecified; E86.0 Dehydration; Z20.822 Contact with and (suspected) exposure to COVID-19; Z68.33 Body mass index [BMI] 33.0-33.9, adult; Z86.73 Personal history of transient ischemic attack (TIA), and cerebral infarction without residual deficits; Z88.0 Allergy status to penicillin; Z72.0 Tobacco use
CPT/HCPCS: 36415; 70450; 71045; 80048; 80053; 80305; 81003; 82140; 82150; 82948; 83036; 83690; 83735; 83880; 84100; 84134; 84436; 84439; 84443; 84484; 85025; 85610; 85730; 87081; 93005; 96365; 97112; 97116; 97163-GP; 97530; 99291; G0482; J1644; J1953; J2060

== ENCOUNTER 2022-01-01 15:41 | Emergency (ER) | payer MEDICAID ==
[~2022-01-01] VITALS: Ht 182.9 cm; Wt 109.8 kg
[~2022-01-01 15:41] MED LIST changes: -ATOR40TA PO; +DIVA250E1 PO; -DIVA250T PO; -DOCU-299 PO; -PANT40EC56 PO; -[UNRECOGNIZED DRUG - CODE] PO
[2022-01-01 15:56] VITALS: BP 135/87
--- NOTE | 2022-01-01 16:25 | NUR ---
JERAMY MORALES AT BEDSIDE FOR EVAL
--- NOTE | 2022-01-01 16:27 | NUR ---
31 Y/O MALE BIB SELF C/O LACK OF [id number], "WOKE UP SUDDENLY BLIND BUT DIDNT PASS OUT", LACK OF ENERGY, BODY MALAISE. ALLERGY: PCN PMH: EPILEPSY, HDL, HTN, ANXIETY, CVA
--- NOTE | 2022-01-01 16:57 | NUR ---
DR VILLASEÑOR AT BEDSIDE FOR EVAL
[2022-01-01] MEDS ORDERED: ATA25 PO (17:09)
[2022-01-01 17:21] VITALS: BP 118/77
--- NOTE | 2022-01-01 17:21 | NUR ---
Patient discharged with v/s stable. Written and verbal after care instructions ABOUT YADIEL, WEAKNESS given and explained. Patient alert, oriented and verbalized understanding of instructions. Ambulatory with steady gait. All questions addressed prior to discharge. ID band removed. Patient advised to follow up with PMD. Rx of ATARAX given. Patient educated on indication of medication including possible reaction and side effects. Opportunity to ask questions provided and answered.
== END 2022-01-01 17:21 | disposition home or self-care (01) ==
LOC: MED 15:41
DX: F41.9 Anxiety disorder, unspecified (principal); I10 Essential (primary) hypertension; Z86.73 Personal history of transient ischemic attack (TIA), and cerebral infarction without residual deficits; Z88.0 Allergy status to penicillin
CPT/HCPCS: 99283

== ENCOUNTER 2022-01-14 13:48 | Inpatient (IN) | payer MEDICAID ==
[~2022-01-14] VITALS: Ht 182.9 cm; Wt 108.9 kg
[~2022-01-14 13:48] MED LIST changes: +ATA25 PO
--- NOTE | 2022-01-14 13:50 | NUR ---
TO ER BED 6
[2022-01-14 13:54] VITALS: BP 136/72
--- NOTE | 2022-01-14 14:44 | NUR ---
taken to ct via robles
--- NOTE | 2022-01-14 14:59 | NUR ---
31 y/o male bib family from home, pt presents to ed with mulitple witnessed seizures. pt assisted to ground by mother, had 5 seizures at home, unknown duration, and 2 episodes en route. pt a&ox4, gcs 15 at this time. no oral or head injuries noted at this time. skin is pink/warm/dry. pt denies any fever, cp, sob, or cough at this time. patient positioned for comfort. hob elevated. bed down. ermd made aware of pt. pmh: seizure, htn, hld, cva 7 years ago med: keppra allergy: penicillin
[2022-01-14 15:19] LABS: BASOPHILS # (AUTO) 0.1 K/uL (0.00-0.22); BASOPHILS % (AUTO) 1.1 % (0.0-2.0); EOSINOPHILS # (AUTO) 0.1 K/uL (0-0.4); EOSINOPHILS % (AUTO) 1.1 % (0.0-4.0); HEMATOCRIT 42.2 % (36-52); HEMOGLOBIN 14.7 g/dL (12.0-18.0); LYMPHOCYTES % (AUTO) 18.1 % (20.5-51.1); MEAN CORPUSCULAR HEMOGLOBIN 30 pg (27-31); MEAN CORPUSCULAR HGB CONC 35 g/dL (33-37); MONOCYTES # (AUTO) 0.5 K/uL (0.8-1.0); MONOCYTES % (AUTO) 8.5 % (1.7-9.3); NEUTROPHILS # (AUTO) 3.8 K/uL (1.8-7.7); NEUTROPHILS % (AUTO) 71.2 % (42.2-75.2); PLATELET COUNT (AUTO) 238 K/uL (140-450); RED BLOOD CELL COUNT(AUTO) 4.97 MIL/uL (4.20-6.10); RED CELL DISTRIBUTION WIDTH 12.5 % (11.6-13.7); WHITE BLOOD COUNT (AUTO) 5.4 K/uL (4.8-10.8)
[2022-01-14 15:26] LABS: PROTHROMBIN TIME 9.8 secs (10.8-13.4)
[2022-01-14 15:30] LABS: ALBUMIN 3.2 g/dL (3.4-5.0); ANION GAP 14.7 (8-16); CARBON DIOXIDE 23.7 mmol/L (21-32); CREATININE 0.8 mg/dL (0.6-1.3); POTASSIUM 4.4 mmol/L (3.5-5.1); TOTAL BILIRUBIN 0.5 mg/dL (0.0-1.0)
--- NOTE | 2022-01-14 16:12 | NUR ---
TELE NEURO REQUEST SENT;[facility] ID [id number]
[2022-01-14] MEDS ORDERED: levETIRAcetam 1,000 MG in NACL 0.9% 100 ML IV ONE (16:35)
[2022-01-14] MEDS ORDERED: levETIRAcetam 100 MG/ML VIAL IV ONE (16:39)
--- NOTE | 2022-01-14 16:51 | NUR ---
Obtained urine sample, walked to lab. Handed to CPT. Irais
--- NOTE | 2022-01-14 17:30 | NUR ---
OBTAINED JOSE SAMPLE, HANDED TO CPT CHELSEA.
[2022-01-14 17:31] LABS: APPEARANCE,URINE CLEAR (CLEAR); BILIRUBIN,URINE NEGATIVE (NEGATIVE); BLOOD, URINE NEGATIVE (NEGATIVE); COLOR,URINE YELLOW (YELLOW); LEUKOCYTE ESTERASE ,URINE NEGATIVE (NEGATIVE); NITRITE, URINE NEGATIVE (NEGATIVE); PH,URINE 8.5 (5.0-9.0); UGLUCOSE NEGATIVE (NEGATIVE)
[2022-01-14] MEDS ORDERED: ZOLPIDEM 5 MG TAB PO PRN (17:50)
[2022-01-14] MEDS ORDERED: DOCUSATE SODIUM 100 MG GELCAP PO PRN (17:50)
[2022-01-14] MEDS ORDERED: HYDROcodone/APAP 7.5/325 MG 1 TAB PO PRN (17:50)
[2022-01-14] MEDS ORDERED: LORazepam 2 MG/ML VIAL IVP PRN (17:50)
[2022-01-14] MEDS ORDERED: POTASSIUM CHLORIDE 10 MEQ TABER PO PRN (17:50)
[2022-01-14] MEDS ORDERED: ACETAMINOPHEN 325 MG TAB PO PRN (17:50)
[2022-01-14] MEDS ORDERED: guaiFENesin DM 200/20 MG-10 ML 10 ML UDC PO PRN (17:50)
[2022-01-14] MEDS ORDERED: ONDANSETRON 4 MG/2 ML VIAL IM/IVP PRN (17:50)
[2022-01-14] MEDS ORDERED: LEVE750T3 PO (18:05)
[2022-01-14] MEDS ORDERED: ENAL5TAB34 PO (18:05)
[2022-01-14] MEDS ORDERED: ATOR10TA PO (18:05)
[2022-01-14] MEDS ORDERED: ATOR40TA PO (18:06)
[2022-01-14] MEDS ORDERED: ASPI-1749 PO (18:06)
--- NOTE | 2022-01-14 18:06 | NUR ---
MED RECON DONE
--- NOTE | 2022-01-14 18:07 | NUR ---
Patient is complaining of runny nose and sneezing. Patient requesting allergy medication. Notified Dr. Lim, recieved orders for Benadryl 25mg po Q12 prn
[2022-01-14 18:16] LABS: AMYLASE 57 U/L (25-115); CHOL/HDL RATIO 2.8 (1-4.5); FREE T4 (FREE THYROXINE) 3.19 ng/dL (0.76-1.46); HDL CHOLESTEROL 37 mg/dL (40-60); LDL (CALC) 32 mg/dL (60-100); LIPASE 111 U/L (73-393); MAGNESIUM 1.9 mg/dL (1.8-2.4); PHOSPHORUS 2.5 mg/dL (2.5-4.9); TRIGLYCERIDES 167 mg/dL (30-150)
[2022-01-14 18:45] LABS: THYROID STIMULATING HORMONE < 0.01 uIU/mL (0.34-3.74)
[2022-01-14] MEDS: NACL 0.9% 1,000 ML IV SCH ×2 (19:12→20:45)
--- NOTE | 2022-01-14 19:25 | NUR ---
Report given to MALIHA Puentes for transfer of care.
--- NOTE | 2022-01-14 19:30 | NUR ---
RECEIVED IN BED 6, PENDING ADMISSION FOR SEIZURES. SZ PRECAUTIONS ARE IN PLACE, NO SZ ACTIVITY NOTED. PT IS AWAKE, ALERT AND ORIENTED. SKIN IS WARM AND DRY
--- NOTE | 2022-01-14 19:38 | NUR ---
X-Ray at bedside.
--- NOTE | 2022-01-14 19:41 | NUR ---
XRAY AT BEDSIDE
[2022-01-14 20:30] VITALS: BP 113/69
--- NOTE | 2022-01-14 20:30 | NUR ---
RECEIVED REPORT FROM ER NURSE. PATIENT IS A&O X4. PATIENT IS ON ROOM AIR, BREATHING IS NORMAL WITH SYMMETRICAL RISE AND FALL OF CHEST. IV IS A 20G ON LEFT WRIST, RUNNING NS AT 125. PATIENT IS COOPERATIVE. ADMISSION VITALS TAKEN, VITALS ARE: BP 113/69, HR 92, TEMP 98.0, O2 94, RR 18. BED WAS PADDED FOR SEIZURE PRECAUTIONS AND SIGN WAS POSTED OVER BED. PATIENT IS LYING SEMI FOWLERS IN BED. WILL CONTINUE TO OBSERVE PATIENT.
--- NOTE | 2022-01-14 20:36 | NUR ---
TO M/S, 122A, VIA JOHN ACCOMPANIED BY MALIHA.
[2022-01-14] MEDS: DIVALPROEX 250 MG TABEC PO SCH (21:12)
--- NOTE | 2022-01-14 21:20 | NUR ---
2100 MEDICATION WAS ADMINISTERED TO PATIENT. PATIENT TOLERATED MEDICATION WELL, TAKING ONE PILL AT A TIME WITH WATER. PATIENT ASKED FOR SOMETHING TO EAT. PATIENT IS ON REGULAR DIET, GAVE PATIENT A HAM & CHEESE SANDWICH AND TWO JELLO CUPS. IV STILL RUNNING NS AT 125. WILL CONTINUE TO OBSERVE PATIENT.
--- NOTE | 2022-01-14 23:30 | NUR ---
LOOKED IN ON PATIENT. PATIENT WAS LYING ON SIDE, SLEEPING COMFORTABLY. IV WAS STILL RUNNING NS AT 125. BREATHING WAS NORMAL WITH SYMMETRICAL RISE AND FALL OF CHEST. WILL CONTINUE TO OBSERVE PATIENT.
--- NOTE | 2022-01-15 01:45 | NUR ---
LOOKED IN ON PATIENT. PATIENT WAS SLEEPING, LYING SUPINE. IV WAS RUNNING 125ML/HR. WHILE IN THE ROOM PATIENT WOKE UP AND ASKED ME TO CLOSE THE CURTAIN MORE FOR HIM. I CLOSED THE CURTAIN AND REMINDED THE PATIENT TO URINATE IN THE URINE COLLECTION CUP WHEN HE NEEDS TO VOID FOR A URINE ANALYSIS. PATIENT STATED THAT HE WILL. PATIENT SHUT EYES TO GO BACK TO SLEEP. BREATHING WAS NORMAL WITH SYMMETRICAL RISE AND FALL OF CHEST. WILL CONTINUE TO OBSERVE PATIENT.
[2022-01-15 04:00] VITALS: BP 115/64
--- NOTE | 2022-01-15 04:15 | NUR ---
OBTAINED 0400 VITALS. VITALS WERE: BP 115/64, HR 92, O2 98, RR 18, TEMP 97.4. PATIENT WAS SLEEPING UPON ENTERING ROOM. WOKE PATIENT UP FOR VITALS. PATIENT REQUESTED PHONE FOR ROOM. WILL LOOK FOR PHONE FOR PATIENT'S ROOM.
[2022-01-15] MEDS: NACL 0.9% 1,000 ML IV SCH ×2 (04:35→18:08)
--- NOTE | 2022-01-15 04:40 | NUR ---
CHANGED OUT PATIENT'S IV BAG. NEW BAG RUNNING AT NS 125. PATIENT IS SLEEPING. BREATHING IS NORMAL WITH SYMMETRICAL RISE AND FALL OF CHEST. WILL CONTINUE TO OBSERVE PATIENT.
[2022-01-15 05:38] LABS: BASOPHILS % (AUTO) 0.2 % (0.0-2.0); HEMATOCRIT 39.2 % (36-52); HEMOGLOBIN 13.5 g/dL (12.0-18.0); LYMPHOCYTES # (AUTO) 1.3 K/uL (2.0-11.5); LYMPHOCYTES % (AUTO) 13.9 % (20.5-51.1); MEAN CORPUSCULAR HEMOGLOBIN 30 pg (27-31); MEAN CORPUSCULAR HGB CONC 34 g/dL (33-37); MEAN CORPUSCULAR VOLUME 85.8 fL (80-94); MONOCYTES # (AUTO) 0.5 K/uL (0.8-1.0); MONOCYTES % (AUTO) 5.4 % (1.7-9.3); NEUTROPHILS # (AUTO) 7.6 K/uL (1.8-7.7); NEUTROPHILS % (AUTO) 80.5 % (42.2-75.2); PLATELET COUNT (AUTO) 230 K/uL (140-450); RED BLOOD CELL COUNT(AUTO) 4.57 MIL/uL (4.20-6.10); RED CELL DISTRIBUTION WIDTH 12.2 % (11.6-13.7); WHITE BLOOD COUNT (AUTO) 9.4 K/uL (4.8-10.8)
[2022-01-15 06:30] LABS: ANION GAP 8.7 (8-16); CREATININE 0.7 mg/dL (0.6-1.3); POTASSIUM 3.7 mmol/L (3.5-5.1)
--- NOTE | 2022-01-15 06:30 | NUR ---
OBTAINED PHONE FOR PATIENT. PLACED PHONE ON PATIENT'S DRESSER IN ROOM. WILL INFORM PATIENT AND EDUCATE HIM WHEN HE WAKES UP OR WILL ENDORSE TO DAY SHIFT TO EDUCATE PATIENT ON HOW TO USE PHONE IF PATIENT IS STILL SLEEPING AT END OF SHIFT.
--- NOTE | 2022-01-15 07:45 | NUR ---
RECEIVED REPORT FROM NIGHTSHIFT NURSE XIMENA FOR CONTINUITY OF CARE. PT IS IN STABLE CONDITION, CURRENTLY SLEEPING. A/OX4, BREATHING EVEN, REGULAR AND UNLABORED ON ROOM AIR. PT IS CONTINENT OF THE BOWEL AND BLADDER. PT CONTINUES TO HAVE PARALYSIS ON LEFT SIDE, UNABLE TO SQUEEZE OR MOVE LEFT HAND, BUT REPORTED THE RETURN OF HIS SENSATIONS AT APPROX 0400. PT IS ON BEDREST. PT SKIN IS INTACT, IV CLEAN, DRY AND PATENT. NO SIGNS OF PAIN OR DISTRESS NOTED AT THIS TIME.
--- NOTE | 2022-01-15 07:45 | NUR ---
ENDORSED TO DAY SHIFT NURSE ESTHELA FOR CONTINUITY OF CARE. PATIENT IS STABLE.
[2022-01-15 08:00] VITALS: BP 107/56
--- NOTE | 2022-01-15 09:10 | NUR ---
PT VISUALLY ASSESSED, NO SIGNS OF PAIN OR DISTRESS NOTED.
[2022-01-15] MEDS: levETIRAcetam 500 MG in NACL 0.9% 100 ML IV SCH ×2 (09:13→21:38)
[2022-01-15] MEDS: DIVALPROEX 250 MG TABEC PO SCH ×2 (09:13→21:00)
[2022-01-15] MEDS: PANTOPRAZOLE 40 MG TABEC PO SCH (09:13)
--- NOTE | 2022-01-15 09:20 | NUR ---
PATIENT HAS BEEN SCREENED AND CATEGORIZED LOW NUTRITION RISK. PATIENT WILL BE SEEN WITHIN 7 DAYS OF ADMISSION. 01/14/22-01/21/[address]
--- NOTE | 2022-01-15 11:00 | NUR ---
PT VISUALLY ASSESSED, NO SIGNS OF PAIN OR DISTRESS NOTED.
[2022-01-15 11:50] LABS: BARBITURATE, URINE NEGATIVE ng/ml (NEG <=200); BENZODIAZEPINE, URINE NEGATIVE ng/mL (NEG <=200); CANNABINOID, URINE NEGATIVE ng/mL (NEG <=50); COCAINE, URINE NEGATIVE ng/mL (NEG <=300); OPIATE, URINE NEGATIVE ng/mL (NEG <=2000); PHENCYCLIDINE SCREEN,URINE NEGATIVE ng/mL (NEG <=25)
--- NOTE | 2022-01-15 13:13 | NUR ---
RECEIVED REPORT FROM XIMENA JETT, PATIENT WAS STABLE DURING THE TRANSFER OF CARE. PATIENT WAS NOTED BREATHING WITHOUT DISTRESS. NURSING NOTED CHEST RISING AND FALLING WITHOUT INCIDENT. NO NOTED S/S OF PAIN AT THIS TIME. ALL EVENING MEDICATION WERE GIVEN BY ENDORSED NURSE. HEAD OF HEAD ELEVATED FOR COMFORT AND ADJUSTMENTS. SIDE RAILS UP X 2. CALL LIGHT WITHIN REACH PATIENT. [id number] Addendum: 01/16/22 at 0317 by Clarisa Girard LVN THIS NOTATION WAS FOR 01/15/22 2313 NO AT NOON. [email or web address]
--- NOTE | 2022-01-15 13:45 | NUR ---
SQL DEVELOPER DBA AT THE BEDSIDE PERFORMING EEG. PT DENIES PAIN AT THIS TIME.
--- NOTE | 2022-01-15 15:00 | NUR ---
PT VISUALLY ASSESSED, NO SIGNS OF PAIN OR DISTRESS NOTED.
[2022-01-15 16:00] VITALS: BP 150/86
--- NOTE | 2022-01-15 17:00 | NUR ---
PT VISUALLY ASSESSED, NO SIGNS OF PAIN OR DISTRESS NOTED.
--- NOTE | 2022-01-15 19:13 | NUR ---
ENDORSED PT TO NIGHTSHILAURA BUENO FOR CONTINUITY OF CARE. PT IN STABLE CONDITION.
--- NOTE | 2022-01-15 19:30 | NUR ---
RECEIVED REPORT FROM DAY SHIFT NURSE ESTHELA FOR CONTINUITY OF CARE. PATIENT IS A&O X4. PATIENT IS ON ROOM AIR, BREATHING IS NORMAL WITH SYMMETRICAL RISE AND FALL OF CHEST. IV IS A 20G L WRIST, RUNNING NS AT 125/HR. PATIENT IS SITTING UP IN BED WATCHING TV. BED IS IN LOWEST POSITION, WHEELS LOCKED, CALL LIGHT IN PLACE. WILL CONTINUE TO OBSERVE PATIENT.
[2022-01-15 20:00] VITALS: BP 131/75
--- NOTE | 2022-01-15 22:00 | NUR ---
OBTAINED 1999 VITALS. VITALS WERE: BP 131/75, HR 107, O2 94, RR 18, TEMP 98.3. ADMINISTERED 2100 MEDICATION IVPB TO PATIENT. PATIENT REFUSED DIVALPROEX. PATIENT STATED THAT HE WANTS TO WAIT UNTIL HE SEES THE NEUROLOGIST BECAUSE HE FEELS HE'S GETTING TO MUCH MEDICATION FOR SEIZURES. PATIENT THEN LAYED ON HIS SIDE TO GO BACK TO SLEEP. NOTATED PATIENT'S REFUSAL. WILL CONTINUE TO OBSERVE PATIENT.
--- NOTE | 2022-01-15 23:12 | NUR ---
ENDORSED TO MAP EDITOR NURSE JAMEL FOR CONTINUITY OF CARE. PATIENT IS STABLE.
[2022-01-16] MEDS: NACL 0.9% 1,000 ML IV SCH (02:12)
[2022-01-16 05:29] LABS: BASOPHILS % (AUTO) 0.3 % (0.0-2.0); HEMATOCRIT 38.3 % (36-52); HEMOGLOBIN 13.5 g/dL (12.0-18.0); LYMPHOCYTES % (AUTO) 24.5 % (20.5-51.1); MEAN CORPUSCULAR HEMOGLOBIN 30 pg (27-31); MEAN CORPUSCULAR HGB CONC 35 g/dL (33-37); MEAN CORPUSCULAR VOLUME 84.6 fL (80-94); MONOCYTES # (AUTO) 0.9 K/uL (0.8-1.0); MONOCYTES % (AUTO) 11.3 % (1.7-9.3); NEUTROPHILS # (AUTO) 5.2 K/uL (1.8-7.7); NEUTROPHILS % (AUTO) 63.9 % (42.2-75.2); PLATELET COUNT (AUTO) 229 K/uL (140-450); RED BLOOD CELL COUNT(AUTO) 4.53 MIL/uL (4.20-6.10); RED CELL DISTRIBUTION WIDTH 12.5 % (11.6-13.7); WHITE BLOOD COUNT (AUTO) 8.2 K/uL (4.8-10.8)
[2022-01-16 05:51] LABS: ANION GAP 11.3 (8-16); CARBON DIOXIDE 23.4 mmol/L (21-32); CREATININE 0.6 mg/dL (0.6-1.3); POTASSIUM 3.7 mmol/L (3.5-5.1)
--- NOTE | 2022-01-16 05:55 | NUR ---
PATIENT REMAINS IN BED ASLEEP. NO NOTED S/S OF PAIN OR DISCOMFORT. PATIENT WAS ABLE TO MOVE WITHOUT COMPLAINING OF WEAKNESS. NO NOTED SEIZURE ACTIVITY DURING THE NIGHT. SIDE RAILS UP AND PADDED. CALL LIGHT WITHIN REACH. [email or web address]
--- NOTE | 2022-01-16 06:54 | NUR ---
NURSING NOTED PATIENT HAS DISCONNECTED IV FLUID AND TURNS MACHINE OFF. THIS BEHAVIOR WILL REPORTED TTO AM SHIFT FOR PATIENT EDUCATION. [email or web address]
--- NOTE | 2022-01-16 07:09 | NUR ---
ENDORSED PATIENT TO TRISTIN COOPER FOR CONTINUITY OF CARE, PATIENT WAS STABLE DURING SHIFT REPORT. INFORM ABLE PATIENT REMOVING THE IV FLUIDS AND TURNING OFF THE MACHINE. [email or web address]
--- NOTE | 2022-01-16 07:10 | NUR ---
RECEIVED REPORT FROM ROBOTIC TECHNICIAN NURSE SAAD FOR CONTINUITY OF CARE. PATIENT ASLEEP NO DISTRESS NOTED. IV SITE ON LEFT WRIST LYNNE 20 RUNNING AT 125 CC/HOUR ALL SAFETY MEASURE IN PLACE. CALL LIGHT WITH IN EASY REACH.
[2022-01-16 08:00] VITALS: BP 110/65
[2022-01-16] MEDS: DIVALPROEX 250 MG TABEC PO SCH ×2 (09:00→21:00)
[2022-01-16] MEDS: PANTOPRAZOLE 40 MG TABEC PO SCH (09:09)
--- NOTE | 2022-01-16 09:12 | NUR ---
PATIENT ALERT GIVEN DUE MEDICATION BUT REFUSED TO TAKE DEPAKOTE STATED ONLY KEPPRA. PATIENT ALSO ASKING WHEN THE NEUROLOGIST GOING TO SEE HIM BECAUSE HIS LEFT SIDE IS NORMAL NOW NO MORE WEAKNESS REPORTED FROM HIM. ITS WAS ENDORSE MIGHT BE TODAY BUT TIME UNKNOWN.
--- NOTE | 2022-01-16 09:29 | NUR ---
DR. TORRES SEEN PATIENT INFORM OF THE REFUSAL OF DEPAKOTE.
[2022-01-16] MEDS: levETIRAcetam 500 MG in NACL 0.9% 100 ML IV SCH (09:49)
--- NOTE | 2022-01-16 12:00 | NUR ---
DC PLANNING GELA MET WITH PATIENT AT BEDSIDE TO COMPLETE ASSESSMENT. PATIENT REPORTS RESIDING AT HOME WITH HIS FAMILY AT THE ADDRESS LISTED ON FILE. PATIENT IDENTIFIED DALILA ADAMS (MOM)[phone] EMERGENCY CONTACT AND MDM. PATIENT DENIED AD IN PLACE AND DECLINED AD OFFERED BY GELA. PATIENT REPORTS MEETING W/ PCP,CONSISTENTLY, LAST VISIT; THREE MONTHS AGO . PATIENT REPORTS MEDICATION COMPLIANCE AND DENIES BARRIERS IN ACCESS TO MEDICATION. PATIENT REPORTS PICKING UP MEDICATION FROM [facility] IN [place], WHEN NEEDED. PATIENT REPORTS ADEQUATE FOOD SOURCE AND DENIES BARRIERS IN ACCESS TO FOOD, PATIENT RECEIVES CALL FRESH BENEFITS, HOWEVER UNABLE TO RECALL AMOUNT PROVIDED EACH MONTH. PATIENT REPORTS BEING INDEPENDENT IN ALL ACTIVITIES AND DENIES USE OF DME. PATIENT COMPLETES ADL'S INDEPENDENTLY. PT DENIES MH HX. PATIENT REPORTS HX OF PCP AND COCAINE USE, HOWEVER, PATIENT HAS BEEN SOBER FOR 17 YRS. PATIENT REPORTS ON/OFF OFF ALCOHOL USE THAT SPANNED OVER 14 YRS, PATIENT REPORTS BEING SOBER SINCE MAY 07. PATIENT DECLINED SA RESOURCES OFFERED BY GELA. PATIENT REPORTS HX OF HOME HEALTH "ABOUT A YR OR SO AGO", HOWEVER STRUGGLED TO RECALL NAME OF AGENCY THAT PROVIDED CARE. PATIENT REPORTS DC PLAN IS TO RETURN HOME WHEN CLINICALLY STABLE, WITH HIS MOTHER PROVIDING TRANSPORTATION AND AIDING IN CARE, IF REQUIRED. SW INQUIRED ON ADDITIONAL RESOURCES NEEDED, PATIENT DECLINED.
--- NOTE | 2022-01-16 12:30 | NUR ---
PATIENT HAD HIS LUNCH TOLERATED WELL. CALL LIGHT WITH IN EASY REACH. ALWAYS WANT TO CLOSE THE DOOR.
--- NOTE | 2022-01-16 15:42 | NUR ---
PATIENT ON BED RESTING WITH CALL LIGHT WITH IN EASY REACH. NO SEIZURE DISORDER NOTED. IV RUNNING AT 125 CCF/HOUR TOLERATED WELL NO FLUID OVER LOAD NOTED.
[2022-01-16 16:00] VITALS: BP 120/67
[2022-01-16 18:25] LABS: T4 (THYROXINE) 16.5 ug/dL (4.5 - 12.0)
--- NOTE | 2022-01-16 19:19 | NUR ---
SEEN BY DR. HUERTA AT BED SIDE.
--- NOTE | 2022-01-16 19:21 | NUR ---
GAVE REPORT TO HYDROELECTRIC POWERPLANT SUPERVISOR NURSE TU FOR CONTINUITY OF CARE.
--- NOTE | 2022-01-16 20:00 | NUR ---
KEPPRA 500MG TIV INFUSING ALMOST ON THE HALF WAY - WHEN I REVIEWED THE EMAR - THE KEPPRA INCREASED TO 1,[address] HUERTA - WILL ENDORSE TO AM NURSE ABOUT THIS MATTER .
[2022-01-16] MEDS: levETIRAcetam 1,000 MG in NACL 0.9% 100 ML IV SCH ×2 (21:00→21:09)
--- NOTE | 2022-01-16 21:17 | NUR ---
REFUSED DEPAKOTE - WILL INFORM DR Shaylee HUERTA .
[2022-01-17] VITALS: BP 128/63
--- NOTE | 2022-01-17 | NUR ---
ROUNDS , NO COMPLAIN MADE , CALL LIGHT WITHIN REACH .
--- NOTE | 2022-01-17 04:00 | NUR ---
ROUNDS , SLEEPING , BUT EASILY AROUSABLE BY SOUNDS , NO COMPLAIN MADE .
[2022-01-17 05:43] LABS: BASOPHILS % (AUTO) 0.4 % (0.0-2.0); EOSINOPHILS % (AUTO) 0.2 % (0.0-4.0); HEMATOCRIT 41.8 % (36-52); HEMOGLOBIN 14.5 g/dL (12.0-18.0); LYMPHOCYTES # (AUTO) 2.4 K/uL (2.0-11.5); MEAN CORPUSCULAR HEMOGLOBIN 30 pg (27-31); MEAN CORPUSCULAR HGB CONC 35 g/dL (33-37); MEAN CORPUSCULAR VOLUME 85.1 fL (80-94); MONOCYTES # (AUTO) 0.9 K/uL (0.8-1.0); MONOCYTES % (AUTO) 9.1 % (1.7-9.3); NEUTROPHILS # (AUTO) 6.3 K/uL (1.8-7.7); NEUTROPHILS % (AUTO) 65.3 % (42.2-75.2); PLATELET COUNT (AUTO) 265 K/uL (140-450); RED BLOOD CELL COUNT(AUTO) 4.91 MIL/uL (4.20-6.10); RED CELL DISTRIBUTION WIDTH 12.5 % (11.6-13.7); WHITE BLOOD COUNT (AUTO) 9.7 K/uL (4.8-10.8)
[2022-01-17 05:59] LABS: ANION GAP 13.7 (8-16); CARBON DIOXIDE 24.5 mmol/L (21-32); CREATININE 0.6 mg/dL (0.6-1.3); POTASSIUM 4.2 mmol/L (3.5-5.1)
--- NOTE | 2022-01-17 06:00 | NUR ---
ROUNDS , NO S/SX OF ACUTE DISTRESS NOTED .
--- NOTE | 2022-01-17 07:18 | NUR ---
ENDORSED -PT - STABLE .
--- NOTE | 2022-01-17 07:19 | NUR ---
RECEIVED PT FROM MUNICIPAL CLERK NURSE FOR CONTINUITY OF CARE. PATIENT IN BED WITH EYES CLOSED. NO DISTRESS NOTED. IV SITE ON LEFT WRIST 20G, SALINE LOCK. ALL SAFETY MEASURES IN PLACE. CALL LIGHT WITHIN REACH.
[2022-01-17 08:00] VITALS: BP 107/69
[2022-01-17] MEDS: levETIRAcetam 1,000 MG in NACL 0.9% 100 ML IV SCH (08:47)
--- NOTE | 2022-01-17 08:48 | NUR ---
SEEN BY DR. TORRES AND PATIENT WANT TO GO HOME ALREADY BUT WANT THE KEPPRA TO BE GIVEN TO HIM FIRST BEFORE DISCHARGE. RN MICHELE CLAYTON.
[2022-01-17] MEDS: DIVALPROEX 250 MG TABEC PO SCH (09:00)
[2022-01-17] MEDS ORDERED: LEVE1000 PO (09:07)
[2022-01-17] MEDS: PANTOPRAZOLE 40 MG TABEC PO SCH (09:15)
[2022-01-17 09:21] VITALS: BP 107/69
--- NOTE | 2022-01-17 10:10 | NUR ---
PT ALERT AND ORIENTED NO WEAKNESS NOTED ON HIS LEFT SIDE. DISCHARGE PACKET GIVEN WITH INSTRUCTIONS PT VERBALIZED UNDERSTANDING. REMOVED NAME BAND AND IV SITE WITH CATH INTACT. PT TOOK ALL PERSONAL BELONGINGS AND WALKED ALONGSIDE OF NURSE TO THE MAIN LOBBY. PT IN STABLE CONDITION.
== END 2022-01-17 10:23 | disposition home or self-care (01) | DRG 53 ==
LOC: MED 13:48 → MTU 17:22
PROVIDERS: ADMIT Family Medicine; ATTEND Family Medicine
PROC: 4A00X4Z Measurement of Central Nervous Electrical Activity, External Approach (ICD-10-PCS; principal; 2022-01-15)
DX: G40.909 Epilepsy, unspecified, not intractable, without status epilepticus (principal); G93.41 Metabolic encephalopathy; E44.1 Mild protein-calorie malnutrition; E87.1 Hypo-osmolality and hyponatremia; I69.354 Hemiplegia and hemiparesis following cerebral infarction affecting left non-dominant side; E78.2 Mixed hyperlipidemia; Z20.822 Contact with and (suspected) exposure to COVID-19; Z88.0 Allergy status to penicillin; Z88.8 Allergy status to other drugs, medicaments and biological substances; Z79.899 Other long term (current) drug therapy; Z68.32 Body mass index [BMI] 32.0-32.9, adult
CPT/HCPCS: 36415; 70450; 71045; 80048; 80053; 80305; 81003; 82150; 83036; 83690; 83735; 83880; 84100; 84436; 84439; 84443; 84479; 85025; 85610; 85730; 87081; 93005; 95816; J1953; Q0163

== ENCOUNTER 2022-02-05 07:58 | Emergency (ER) | payer MEDICAID ==
[~2022-02-05] VITALS: Ht 182.9 cm; Wt 107.0 kg
[~2022-02-05 07:58] MED LIST changes: +ASPI-1749 PO; +ATOR40TA PO; +ENAL5TAB34 PO; +LEVE1000 PO
[2022-02-05 08:02] VITALS: BP 136/85
--- NOTE | 2022-02-05 08:13 | NUR ---
DR HUNT AT BEDSIDE FOR EVAL
--- NOTE | 2022-02-05 08:24 | NUR ---
X-Ray at bedside.
--- NOTE | 2022-02-05 08:25 | NUR ---
32 YO MALE BIB SELF CO COUGH FOR 5 DAYS. STATED HE STARTED WHEEZING LAST NIGHT AND HAVING A HARDER TIME BREATHING OF THIS MORNING. PT STATES HIS MOM HAD THE SHINGLES/FLU VACCINE LAST SUNDAY AND SINCE THEN THEY BOTH BEGAN PRESENTING SX, COUGH WORSENING ON SUNDAY. NO PAIN NOTED. DENIES N/V/D. ALLERGY TO PENCILLIN PMH: TODDS PARALYSIS, STROKES, SEIZURES, HTN, HLD
--- NOTE | 2022-02-05 08:40 | NUR ---
FLU AND COVID SWABS GIVEN TO LAB
--- NOTE | 2022-02-05 08:55 | NUR ---
SEIZURE PADS IN PLACE
[2022-02-05] MEDS ORDERED: BENZ150C2 PO (09:28)
[2022-02-05] MEDS ORDERED: IBUP-2213 PO (09:29)
[2022-02-05] MEDS ORDERED: ALBU0.0912 IH (09:31)
--- NOTE | 2022-02-05 09:34 | NUR ---
DR HUNT AT BEDSIDE FOR REEVAL
--- NOTE | 2022-02-05 09:38 | NUR ---
Patient discharged with v/s stable. Written and verbal after care instructions given and explained ABOUT COUGH AND ACUTE BRONCHITIS. Patient alert, oriented and verbalized understanding of instructions. Ambulatory to car. All questions addressed prior to discharge. ID band removed. Patient advised to follow up with PMD. Rx of ALBUTEROL, BENZONATATE AND MOTRIN SENT. Patient educated on indication of medication including possible reaction and side effects. Opportunity to ask questions provided and answered.
== END 2022-02-05 09:38 | disposition home or self-care (01) ==
LOC: MED 07:58
DX: J06.9 Acute upper respiratory infection, unspecified (principal); Z20.822 Contact with and (suspected) exposure to COVID-19; I10 Essential (primary) hypertension; Z86.73 Personal history of transient ischemic attack (TIA), and cerebral infarction without residual deficits; Z79.899 Other long term (current) drug therapy; Z88.0 Allergy status to penicillin
CPT/HCPCS: 71045; 87426; 87804; 99284; Q0092

== ENCOUNTER 2022-02-21 13:35 | Emergency (ER) | payer MEDICAID ==
[~2022-02-21] VITALS: Ht 182.9 cm; Wt 103.9 kg
[~2022-02-21 13:35] MED LIST changes: +ALBU0.0912 IH; +BENZ150C2 PO; +IBUP-2213 PO
[2022-02-21 14:09] VITALS: BP 144/85
--- NOTE | 2022-02-21 14:54 | NUR ---
MD ONEILL AT BEDSIDE FOR EVALUATION
--- NOTE | 2022-02-21 15:00 | NUR ---
32YO MALE PT C/O INTERMITTENT SOB DUE TO PRESSURED CHEST PAIN AND PALPITATIONS X4DAYS. STATES EPISODES LASTING <1MIN ON PHYSICAL EXERTION. REPORTS EPISODE TODAY WHILE GOING UP STAIRS. STATES NOT BEING ABLE TO SLEEP DUE TO "SUDDEN AWAKENING W/ PALPITATIONS AND HAVING TO SLEEP SITTING UP. NOTES FATIGUENESS. DENIES N/V/D, FEVER OR CHILLS. 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 SEIZURE PADS IN PLACE HX :HTN, EPILEPSY, CVA, HLD ALLERGIES:PENICILLIN
[2022-02-21 16:21] LABS: ANION GAP 11.5 (8-16); CARBON DIOXIDE 27.3 mmol/L (21-32); CREATININE 0.8 mg/dL (0.6-1.3); POTASSIUM 3.8 mmol/L (3.5-5.1)
[2022-02-21 16:31] LABS: THYROID STIMULATING HORMONE < 0.01 uIU/mL (0.34-3.74)
[2022-02-21 16:46] LABS: BASOPHILS % (AUTO) 0.2 % (0.0-2.0); EOSINOPHILS # (AUTO) 0.1 K/uL (0-0.4); EOSINOPHILS % (AUTO) 1.8 % (0.0-4.0); HEMATOCRIT 41.1 % (36-52); HEMOGLOBIN 14.2 g/dL (12.0-18.0); LYMPHOCYTES # (AUTO) 2.2 K/uL (2.0-11.5); LYMPHOCYTES % (AUTO) 30.8 % (20.5-51.1); MEAN CORPUSCULAR HEMOGLOBIN 29 pg (27-31); MEAN CORPUSCULAR HGB CONC 35 g/dL (33-37); MONOCYTES % (AUTO) 14.1 % (1.7-9.3); NEUTROPHILS # (AUTO) 3.8 K/uL (1.8-7.7); NEUTROPHILS % (AUTO) 53.1 % (42.2-75.2); PLATELET COUNT (AUTO) 321 K/uL (140-450); RED BLOOD CELL COUNT(AUTO) 4.83 MIL/uL (4.20-6.10); RED CELL DISTRIBUTION WIDTH 12.7 % (11.6-13.7); WHITE BLOOD COUNT (AUTO) 7.2 K/uL (4.8-10.8)
[2022-02-21 17:52] VITALS: BP 128/80
--- NOTE | 2022-02-21 17:52 | NUR ---
Patient discharged with v/s stable. Written and verbal after care FOR PALPITATIONS instructions given and explained. Patient verbalized understanding. Ambulatory with steady gait. All questions addressed prior to discharge. Advised to follow up with PMD.
--- NOTE | 2022-02-21 17:53 | NUR ---
Chart checked and completed. The patient's care was reviewed and supervised by Marii Coughlin RN.
== END 2022-02-21 17:52 | disposition home or self-care (01) ==
LOC: MED 13:35
DX: R00.2 Palpitations (principal); F41.9 Anxiety disorder, unspecified; I10 Essential (primary) hypertension; G40.909 Epilepsy, unspecified, not intractable, without status epilepticus; Z88.0 Allergy status to penicillin; Z79.899 Other long term (current) drug therapy; Z86.73 Personal history of transient ischemic attack (TIA), and cerebral infarction without residual deficits
CPT/HCPCS: 36415; 71045; 80048; 83880; 84443; 84484; 85025; 93005; 99285; Q0092

== ENCOUNTER 2022-02-23 09:52 | Emergency (ER) | payer MEDICAID ==
[~2022-02-23] VITALS: Ht 182.9 cm; Wt 103.9 kg
[2022-02-23 10:01] VITALS: BP 116/79
--- NOTE | 2022-02-23 10:01 | NUR ---
32 y/o male, c/o anxiety and right ankle pain post fall last night from stairs. denies syncope, loc. skin is pink/warm/dry. a&o x4, states he is unable to ambulate due to the pain. pt denies any fever, cp, sob, or cough at this time. pt states pain is 10/10 at this time. ermd made aware of pt. pmh: epilepsy, stroke allergy: penicillin med: denies
--- NOTE | 2022-02-23 10:13 | NUR ---
PT W/C TO BED
--- NOTE | 2022-02-23 10:46 | NUR ---
32 Y/O M BIB SELF C/O RIGHT ANKLE PAIN 8/10 WITH MOVEMENT POST FALL LAST NIGHT FROM STAIRS AT HOME. R ANKLE SWELLING. PT ALSO C/O ANXIETY. ALLERGY: PENICILLIN PMH: ANXIETY, EPILEPSY, STROKE, HTN, HYPERCHOLESTEROLEMIA
--- NOTE | 2022-02-23 11:12 | NUR ---
X-RAY AT BEDSIDE.
--- NOTE | 2022-02-23 11:58 | NUR ---
DR GONSALVES AT BEDSIDE.
--- NOTE | 2022-02-23 12:21 | NUR ---
SHORT LEG POSTERIOR + STIRRUP APPLIED TO R LEG. KELVIN WRAP X 2. + CMS. PT ALSO GIVEN CRUTCHES AND PT RETURNED SAFE DEMONSTRATION OF CRUTCHES.
[2022-02-23 12:31] VITALS: BP 140/73
--- NOTE | 2022-02-23 12:33 | NUR ---
Patient discharged with v/s stable. Written and verbal after care instructions given and explained. Patient verbalized understanding. Ambulatory with steady gait. All questions addressed prior to discharge. Advised to follow up with PMD.
--- NOTE | 2022-02-23 13:39 | NUR ---
The patient's care was reviewed and supervised by Luh Vanessa, RN, RN.
== END 2022-02-23 12:33 | disposition home or self-care (01) ==
LOC: MED 09:52
DX: S82.431A Displaced oblique fracture of shaft of right fibula, initial encounter for closed fracture (principal); G40.909 Epilepsy, unspecified, not intractable, without status epilepticus; W19.XXXA Unspecified fall, initial encounter; Y93.89 Activity, other specified; Y92.89 Other specified places as the place of occurrence of the external cause; Y99.8 Other external cause status
CPT/HCPCS: 29515; 73590; 73610; 73630; 99283

== ENCOUNTER 2022-03-04 13:16 | Emergency (ER) | payer MEDICAID ==
[~2022-03-04] VITALS: Ht 182.9 cm; Wt 102.5 kg
[2022-03-04 13:19] VITALS: BP 129/64
[2022-03-04] MEDS ORDERED: PROPRANOLOL 1 MG/ML VIAL IVP ONE (14:20)
[2022-03-04 14:54] LABS: BASOPHILS % (AUTO) 0.3 % (0.0-2.0); EOSINOPHILS # (AUTO) 0.1 K/uL (0-0.4); EOSINOPHILS % (AUTO) 1.4 % (0.0-4.0); HEMATOCRIT 40.1 % (36-52); HEMOGLOBIN 13.8 g/dL (12.0-18.0); LYMPHOCYTES # (AUTO) 1.4 K/uL (2.0-11.5); MEAN CORPUSCULAR HEMOGLOBIN 29 pg (27-31); MEAN CORPUSCULAR HGB CONC 35 g/dL (33-37); MEAN CORPUSCULAR VOLUME 83.8 fL (80-94); MONOCYTES % (AUTO) 11.5 % (1.7-9.3); NEUTROPHILS # (AUTO) 5.9 K/uL (1.8-7.7); NEUTROPHILS % (AUTO) 69.8 % (42.2-75.2); PLATELET COUNT (AUTO) 225 K/uL (140-450); RED BLOOD CELL COUNT(AUTO) 4.79 MIL/uL (4.20-6.10); RED CELL DISTRIBUTION WIDTH 12.7 % (11.6-13.7); WHITE BLOOD COUNT (AUTO) 8.4 K/uL (4.8-10.8)
[2022-03-04] MEDS ORDERED: NACL 0.9% 1,000 ML IV ONE (15:20)
[2022-03-04 15:46] LABS: ALBUMIN 3.1 g/dL (3.4-5.0); ASPARTATE AMINOTRANSFERASE 42 U/L (15-37); CARBON DIOXIDE 25.3 mmol/L (21-32); CREATININE 0.8 mg/dL (0.6-1.3); GFR ARICAN-AMERICAN 142 mL/min (>90); GLUCOSE 76 mg/dL (74-106); TOTAL BILIRUBIN 0.8 mg/dL (0.0-1.0); UREA NITROGEN, BLOOD 10 mg/dL (7-18)
--- NOTE | 2022-03-04 16:23 | NUR ---
PT PLACED IN FABRICATED RIGHT POSTERIOR SHORT LEG SPLINT MADE OUT OF 4" ORHTO-GLASS AND WRAPPED WITH 3" KELVIN WRAPS X3, CMS WNL BEFORE AND AFTER AND PT STATES SPLINT IS COMFORTABLE. JEANIE AND RN NOTIFIED.
[2022-03-04 16:27] LABS: ANION GAP 11.7 (8-16); CHLORIDE 101 mmol/L (98-107); SODIUM SERUM 134 mmol/L (136-145)
[2022-03-04 16:41] LABS: FREE T4 (FREE THYROXINE) 5.85 ng/dL (0.76-1.46); THYROID STIMULATING HORMONE < 0.01 uIU/mL (0.34-3.74)
--- NOTE | 2022-03-04 17:24 | NUR ---
PT A/O TIMES 4, NAD, ST ON CM HR 102, FOOD GIVEN, OKAY BY , O2 SAT 99% RA. SR UP TIMES 2. AWAITS DISPO, DENIES ANY PAIN
[2022-03-04 17:36] LABS: APPEARANCE,URINE CLEAR (CLEAR); BILIRUBIN,URINE 1+ (NEGATIVE); BLOOD, URINE NEGATIVE (NEGATIVE); COLOR,URINE YELLOW (YELLOW); LEUKOCYTE ESTERASE ,URINE NEGATIVE (NEGATIVE); NITRITE, URINE NEGATIVE (NEGATIVE); UGLUCOSE NEGATIVE (NEGATIVE)
[2022-03-04] MEDS ORDERED: PROP20TA29 PO (17:44)
--- NOTE | 2022-03-04 18:12 | NUR ---
PT WAS GIVEN CRUTCHES THAT WERE ADJUSTED TO PT'S SIZE AND HEIGHT. PT STATES THAT THEY ALREADY KNOW HOW TO USE THEM AND SHOWED PROPER DEMONSTRATION ON HOW TO USE THEM. PT HAD NO FURTHER QUESTIONS
[2022-03-04 18:22] VITALS: BP 123/78
--- NOTE | 2022-03-04 18:25 | NUR ---
Patient discharged with v/s stable. Written and verbal after care instructions given and explained. Patient verbalized understanding. Ambulatory with steady gait on crutches, proper use noted, splint right lower leg in place, n/c intact. All questions addressed prior to discharge. Advised to follow up with PMD in 3-4 days.
== END 2022-03-04 18:25 | disposition home or self-care (01) ==
LOC: MED 13:16
DX: S82.891A Other fracture of right lower leg, initial encounter for closed fracture (principal); R00.2 Palpitations; E05.90 Thyrotoxicosis, unspecified without thyrotoxic crisis or storm; I10 Essential (primary) hypertension; Z86.73 Personal history of transient ischemic attack (TIA), and cerebral infarction without residual deficits; Z79.899 Other long term (current) drug therapy; Z79.82 Long term (current) use of aspirin; Z88.0 Allergy status to penicillin; X58.XXXA Exposure to other specified factors, initial encounter; Y93.89 Activity, other specified; Y92.89 Other specified places as the place of occurrence of the external cause; Y99.8 Other external cause status
CPT/HCPCS: 29515; 36415; 71045; 80053; 81003; 83880; 84439; 84443; 84484; 85025; 93005; 96361; 96374; 99285; J1800; J7030

== ENCOUNTER 2022-04-27 17:56 | Emergency (ER) | payer MEDICAID ==
[~2022-04-27] VITALS: Ht 182.9 cm; Wt 103.4 kg
[~2022-04-27 17:56] MED LIST changes: +PROP20TA29 PO
[2022-04-27 18:29] VITALS: BP 119/69
--- NOTE | 2022-04-27 19:19 | NUR ---
JERAMY Baires examining patient.
[2022-04-27] MEDS ORDERED: ERYT5OIN51 OP (19:23)
[2022-04-27] MEDS ORDERED: BENZ200C4 PO (19:23)
--- NOTE | 2022-04-27 19:35 | NUR ---
Flu swab collected and sent to lab.
[2022-04-27 19:38] VITALS: BP 115/69
--- NOTE | 2022-04-27 19:38 | NUR ---
Patient discharged with v/s stable. Written and verbal after care instructions given and explained. Patient alert, oriented and verbalized understanding of instructions. Ambulatory with steady gait. All questions addressed prior to discharge. ID band removed. Patient advised to follow up with PMD. Rx of Benzonatate and Erythromycin given. Patient educated on indication of medication including possible reaction and side effects. Opportunity to ask questions provided and answered.
== END 2022-04-27 19:38 | disposition home or self-care (01) ==
LOC: MED 17:56
DX: H10.9 Unspecified conjunctivitis (principal); J06.9 Acute upper respiratory infection, unspecified; I10 Essential (primary) hypertension; Z86.69 Personal history of other diseases of the nervous system and sense organs; Z86.73 Personal history of transient ischemic attack (TIA), and cerebral infarction without residual deficits; Z79.899 Other long term (current) drug therapy; Z79.2 Long term (current) use of antibiotics; Z79.1 Long term (current) use of non-steroidal anti-inflammatories (NSAID); Z79.82 Long term (current) use of aspirin; Z88.0 Allergy status to penicillin
CPT/HCPCS: 99283

== ENCOUNTER 2022-10-26 12:46 | Emergency (ER) | payer MEDICAID ==
[~2022-10-26] VITALS: Ht 180.3 cm; Wt 113.5 kg
[~2022-10-26 12:46] MED LIST changes: +BENZ200C4 PO; +ENAL-270 PO; -ENAL5TAB34 PO; +ERYT5OIN51 OP
[2022-10-26 12:52] VITALS: BP 128/91; PULSE 85; RESP 20; TEMP 96.7; O2SAT 95
[2022-10-26 13:33] VITALS: O2SAT 95
== END 2022-10-26 13:33 | disposition home or self-care (01) ==
LOC: MED 12:46
DX: E05.90 Thyrotoxicosis, unspecified without thyrotoxic crisis or storm (principal); Z76.0 Encounter for issue of repeat prescription; I10 Essential (primary) hypertension; E78.5 Hyperlipidemia, unspecified; Z86.73 Personal history of transient ischemic attack (TIA), and cerebral infarction without residual deficits; Z86.69 Personal history of other diseases of the nervous system and sense organs; Z79.899 Other long term (current) drug therapy; Z79.2 Long term (current) use of antibiotics; Z79.1 Long term (current) use of non-steroidal anti-inflammatories (NSAID); Z79.82 Long term (current) use of aspirin; Z88.0 Allergy status to penicillin
CPT/HCPCS: 99281

== ENCOUNTER 2023-03-01 08:12 | Emergency (ER) | payer MEDICAID ==
[~2023-03-01] VITALS: Ht 182.9 cm; Wt 113.4 kg
[2023-03-01 08:18] VITALS: BP 136/95; PULSE 81; RESP 18; TEMP 97.4; O2SAT 95
[2023-03-01] MEDS ORDERED: LIDOCAINE 5% 1 EA PATCH TP ONE (10:05)
[2023-03-01] MEDS ORDERED: KETOROLAC 30 MG/ML VIAL IM ONE (10:05)
[2023-03-01] MEDS ORDERED: METH-1681 PO (10:21)
[2023-03-01] MEDS ORDERED: LID5T TP (10:21)
[2023-03-01] MEDS ORDERED: IBUP-2213 PO (10:21)
[2023-03-01] MEDS ORDERED: ATI.5 PO (10:21)
[2023-03-01 11:18] VITALS: BP 132/59; PULSE 89; RESP 18; TEMP 97.8; O2SAT 98
== END 2023-03-01 11:19 | disposition home or self-care (01) ==
LOC: MED 08:12
DX: M43.6 Torticollis (principal); I10 Essential (primary) hypertension; Z86.73 Personal history of transient ischemic attack (TIA), and cerebral infarction without residual deficits; Z86.69 Personal history of other diseases of the nervous system and sense organs; Z79.899 Other long term (current) drug therapy; Z79.1 Long term (current) use of non-steroidal anti-inflammatories (NSAID); Z79.2 Long term (current) use of antibiotics; Z79.82 Long term (current) use of aspirin; Z88.0 Allergy status to penicillin
CPT/HCPCS: 72050; 96372; 99283; J1885

== ENCOUNTER 2023-03-26 09:46 | Emergency (ER) | payer MEDICAID ==
[~2023-03-26] VITALS: Ht 182.9 cm; Wt 111.1 kg
[~2023-03-26 09:46] MED LIST changes: +ATI.5 PO; +LID5T TP; +METH-1681 PO
[2023-03-26 10:04] VITALS: BP 116/82; PULSE 79; RESP 18; TEMP 98; O2SAT 98
[2023-03-26 10:27] VITALS: BP 116/82; PULSE 79; RESP 18; TEMP 98; O2SAT 98
== END 2023-03-26 13:49 | disposition home or self-care (01) ==
LOC: MED 09:46
DX: J02.9 Acute pharyngitis, unspecified (principal); Z20.822 Contact with and (suspected) exposure to COVID-19; I10 Essential (primary) hypertension; E03.9 Hypothyroidism, unspecified; Z86.73 Personal history of transient ischemic attack (TIA), and cerebral infarction without residual deficits; Z79.899 Other long term (current) drug therapy; Z88.0 Allergy status to penicillin
CPT/HCPCS: 87081; 99283

== ENCOUNTER 2023-08-30 09:49 | Emergency (ER) | payer MEDICAID ==
[~2023-08-30] VITALS: Ht 182.9 cm; Wt 119.5 kg
[~2023-08-30 09:49] MED LIST changes: -BENZ150C2 PO; +BENZ150C7 PO
[2023-08-30 09:54] VITALS: BP 126/90; PULSE 84; RESP 18; TEMP 97.5; O2SAT 96
[2023-08-30] MEDS ORDERED: PROP20TA28 PO (11:19)
[2023-08-30] MEDS ORDERED: ENAL10TA PO (11:19)
[2023-08-30] MEDS ORDERED: FLONAS NS (11:19)
[2023-08-30 11:35] VITALS: BP_DIAS 90
== END 2023-08-30 11:35 | disposition home or self-care (01) ==
LOC: MED 09:49
DX: I10 Essential (primary) hypertension (principal); Z86.73 Personal history of transient ischemic attack (TIA), and cerebral infarction without residual deficits; Z87.898 Personal history of other specified conditions; Z79.1 Long term (current) use of non-steroidal anti-inflammatories (NSAID); Z79.82 Long term (current) use of aspirin; Z79.899 Other long term (current) drug therapy; Z88.0 Allergy status to penicillin
CPT/HCPCS: 99281

== ENCOUNTER 2024-02-06 10:39 | Emergency (ER) | payer MEDICAID ==
[~2024-02-06] VITALS: Ht 182.9 cm; Wt 122.5 kg
[~2024-02-06 10:39] MED LIST changes: +ENAL10TA PO; +FLONAS NS; +PROP20TA28 PO
[2024-02-06 10:55] VITALS: BP 127/79; PULSE 94; RESP 20; TEMP 98.3; O2SAT 96
[2024-02-06 11:12] VITALS: O2SAT 96
[2024-02-06] MEDS ORDERED: FLONAS NS (11:28)
[2024-02-06] MEDS ORDERED: LORA10TA60 PO (11:28)
[2024-02-06] MEDS ORDERED: SUD30 PO (11:28)
[2024-02-06] MEDS ORDERED: LEVO750T75 PO (11:28)
== END 2024-02-06 11:49 | disposition home or self-care (01) ==
LOC: MED 10:39
DX: J32.9 Chronic sinusitis, unspecified (principal); R03.0 Elevated blood-pressure reading, without diagnosis of hypertension; I10 Essential (primary) hypertension; Z86.69 Personal history of other diseases of the nervous system and sense organs; Z86.39 Personal history of other endocrine, nutritional and metabolic disease; Z86.73 Personal history of transient ischemic attack (TIA), and cerebral infarction without residual deficits; Z79.899 Other long term (current) drug therapy; Z79.82 Long term (current) use of aspirin; Z88.0 Allergy status to penicillin
CPT/HCPCS: 99283